=== PATIENT | male | born 1945 | race Caucasian/White ===

== ENCOUNTER → 2016-02-10 | Outpatient (CLI) | payer OTHER ==
[~2016-02-10] MED LIST: ASPI81TA28 PO; ATOR-24 PO; CARV6.252 PO; CRANBERRY FRUIT PO; OMEP40CA PO; [UNRECOGNIZED DRUG - OTHER] PO
== END | disposition home or self-care (01) ==
LOC: C.LABPVFM 13:16
PROVIDERS: ATTEND Nurse Practitioner Adult Health
DX: R35.0 Frequency of micturition (principal)

== ENCOUNTER → 2016-02-11 | Outpatient (CLI) | payer OTHER ==
[2016-02-11 17:40] LABS: HEMATOCRIT 41.4 % (42-52); MEAN CELL VOLUME 96.5 fL (80-100); MEAN CORPUSCULAR HGB CONC 35.3 g/dl (32-36); MEAN PLATELET VOLUME 10.4 fL (7.4-10.4); PLATELET COUNT 188 K/uL (130-400); RED BLOOD COUNT 4.29 M/uL (4.7-6.1); WHITE BLOOD COUNT 5.41 K/uL (4.8-10.8)
[2016-02-11 17:56] LABS: ALT/SGPT 37 U/L (12-78); AST/SGOT 28 U/L (15-37); BLOOD UREA NITROGEN 16 mg/dl (7-18); BUN/CREATININE RATIO 14.5 (10-20); CALCIUM 8.8 mg/dl (8.5-10.1); CARBON DIOXIDE 30 mmol/L (21-32); CHLORIDE 104 mmol/L (98-107); GLUCOSE 99 mg/dl (70-99); POTASSIUM 4.1 mmol/L (3.5-5.1); SODIUM 140 mmol/L (136-145)
[2016-02-11 17:59] LABS: ALB/GLOB RATIO 1.1 (0.9-2); ALKALINE PHOSPHATASE 96 U/L (45-117); CHOLESTEROL 184 mg/dl (0-200); CHOLESTEROL/HDL RATIO 3.8; HDL CHOLESTEROL 48 mg/dl; LDL CHOLESTEROL CALCULATED 72 mg/dl; TRIGLYCERIDES 321 mg/dl (0-150); VERY LOW DENSITY LIPOPROT CALC 64 mg/dl
== END | disposition home or self-care (01) ==
LOC: C.LABPVFM 10:19
PROVIDERS: ATTEND Nurse Practitioner Adult Health
DX: I10 Essential (primary) hypertension (principal); I42.9 Cardiomyopathy, unspecified; E78.5 Hyperlipidemia, unspecified; I25.10 Atherosclerotic heart disease of native coronary artery without angina pectoris; R31.9 Hematuria, unspecified

== ENCOUNTER → 2016-02-11 | Outpatient (CLI) | payer OTHER | END | disposition home or self-care (01) | LOC: C.PATHSPEC 07:50 | PROVIDERS: ATTEND Nurse Practitioner Adult Health | DX: R31.9 Hematuria, unspecified (principal) ==

== ENCOUNTER → 2016-07-27 | Outpatient (CLI) | payer OTHER ==
[2016-07-27 13:16] LABS: BLOOD UREA NITROGEN 18 mg/dl (7-18); BUN/CREATININE RATIO 14.7 (10-20); CARBON DIOXIDE 27 mmol/L (21-32); CHLORIDE 109 mmol/L (98-107); GLUCOSE 110 mg/dl (70-99); POTASSIUM 4.3 mmol/L (3.5-5.1); SODIUM 144 mmol/L (136-145)
[2016-07-27 13:19] LABS: CALCIUM 9.2 mg/dl (8.5-10.1)
== END | disposition home or self-care (01) ==
LOC: C.LABPVFM 10:18
PROVIDERS: ATTEND Physician Assistant
DX: E87.70 Fluid overload, unspecified (principal)

== ENCOUNTER → 2016-09-29 | Outpatient (CLI) | payer OTHER | END | disposition home or self-care (01) | LOC: C.PATHSPEC 10:55 | PROVIDERS: ATTEND Urology | DX: D49.4 Neoplasm of unspecified behavior of bladder (principal); R82.99 Other abnormal findings in urine ==

== ENCOUNTER → 2017-03-20 | Outpatient (CLI) | payer OTHER ==
[2017-03-20 12:14] LABS: HEMATOCRIT 42.6 % (42-52); HEMOGLOBIN 14.9 g/dL (14.0-18.0); MEAN CELL VOLUME 96.2 fL (80-100); MEAN CORPUSCULAR HEMOGLOBIN 33.6 pg (25-34); MEAN PLATELET VOLUME 10.7 fL (7.4-10.4); PLATELET COUNT 158 K/uL (130-400); RED CELL DISTRIBUTION WIDTH CV 12.8 % (11.5-14.5); RED CELL DISTRIBUTION WIDTH SD 44.5 fL (36.4-46.3); WHITE BLOOD COUNT 6.14 K/uL (4.8-10.8)
[2017-03-20 12:42] LABS: ALT/SGPT 30 U/L (12-78); AST/SGOT 22 U/L (15-37); BLOOD UREA NITROGEN 19 mg/dl (7-18); CALCIUM 9.3 mg/dl (8.5-10.1); CARBON DIOXIDE 28 mmol/L (21-32); CHOLESTEROL 138 mg/dl (0-200); CREATININE 1.06 mg/dl (0.60-1.40); GLUCOSE 101 mg/dl (70-99); POTASSIUM 4.3 mmol/L (3.5-5.1); SODIUM 139 mmol/L (136-145)
[2017-03-20 12:45] LABS: LDL CHOLESTEROL CALCULATED 62 mg/dl
== END | disposition home or self-care (01) ==
LOC: C.LABPVFM 09:37
PROVIDERS: ATTEND Internal Medicine Cardiovascular Disease
DX: D49.4 Neoplasm of unspecified behavior of bladder (principal); I10 Essential (primary) hypertension; E78.5 Hyperlipidemia, unspecified; I25.10 Atherosclerotic heart disease of native coronary artery without angina pectoris; R06.09 Other forms of dyspnea

== ENCOUNTER → 2017-03-27 | Outpatient (CLI) | payer OTHER ==
--- NOTE | 2017-03-27 11:23 | DIAGNOSTIC IMAGING REPORT ---
ABDOMINAL AORTIC ULTRASOUND CLINICAL HISTORY: Abdominal aortic aneurysm. COMPARISON STUDY: Abdominal aortic ultrasound October 13, [address] of the abdomen and pelvis August 26, 2014. FINDINGS: The proximal abdominal aorta measures 2.4 cm. The mid abdominal aorta measures 2.9 cm. The distal abdominal aorta measures 3.2 cm which is similar to prior exam. The caliber of the proximal bilateral common iliac arteries is normal. IMPRESSION: No significant change in a 3.2 cm infrarenal abdominal aortic aneurysm. Electronically signed by: Jose Kothari M.D. 03/27/2017 11:21 AM Dictated Date/Time: 03/27/2017 11:20 AM
== END | disposition home or self-care (01) ==
LOC: C.ULTR 10:47
PROVIDERS: ATTEND Internal Medicine Cardiovascular Disease
DX: I71.4 Abdominal aortic aneurysm, without rupture (principal)

== ENCOUNTER 2018-09-17 11:42 | Inpatient (IN) ==
[2018-09-17] MEDS ORDERED: SODIUM CHLORIDE 0.9% 500 ML IV SCH (12:00)
[2018-09-17 12:18] LABS: iSTAT Creatinine 1.2 mg/dl (0.6-1.3); iSTAT Hemoglobin 13.6 g/dl (14.0-18.0); iSTAT Ionized Calcium 1.22 mmol/l (1.12-1.32); iSTAT Potassium 3.8 mEq/L (3.3-5.0)
[2018-09-17 12:20] LABS: Basophils # (auto) 0.02 K/uL (0-0.2); Basophils % (auto) 0.4 %; Eosinophils # (auto) 0.11 K/uL (0-0.5); Eosinophils % (auto) 2.2 %; Hematocrit (blood only) 39.5 % (42-52); Hemoglobin 13.8 g/dL (14.0-18.0); Immature Granulocytes # (auto) 0.01 K/uL (0.00-0.02); Immature Granulocytes % (auto) 0.2 %; Lymphocytes # (auto) 0.78 K/uL (1.2-3.4); Lymphocytes % (auto) 15.3 %; Mean Corpuscular Hgb Conc 34.9 g/dL (32-36); Mean Platelet Volume 11.4 fL (7.4-10.4); Monocytes # (auto) 0.66 K/uL (0.11-0.59); Monocytes % (auto) 12.9 %; Neutrophils # (auto) 3.53 K/uL (1.4-6.5); Platelet Count 132 K/uL (130-400); RDW Coefficient of Variation 13.2 % (11.5-14.5); Red Blood Count 4.16 M/uL (4.7-6.1); White Blood Count 5.11 K/uL (4.8-10.8)
--- NOTE | 2018-09-17 12:23 | XRay Report ---
XR chest 1V portable CLINICAL HISTORY: weakness dyspnea COMPARISON STUDY: 01/29/2018 FINDINGS: Mild stable cardiomegaly. Diaphragms are smooth. Lungs are considered clear. No focal infil trate. IMPRESSION: Mild stable cardiomegaly. Otherwise negative study. The above report was generated using voice recognition software. It may contain grammatical, syntax or spelling errors. Electronically signed by: Roberto Carlos Linn M.D. 09/17/2018 12:22 PM
[2018-09-17 12:32] LABS: Prothrombin Time 10.5 Seconds (9.0-12.0)
[2018-09-17 12:38] LABS: Albumin Level 3.4 gm/dl (3.4-5.0); BUN Creatinine Ratio 14.7 (10-20); Calcium 8.9 mg/dl (8.5-10.1); Creatinine Clr Calc Pharmacy 82.5 ml/min; Est GFR (African American) 68.9; Est GFR (Non-African American) 59.5; Magnesium 2.3 mg/dl (1.8-2.4); Potassium 3.8 mmol/L (3.5-5.1)
[2018-09-17 12:49] LABS: Bilirubin,Total 0.7 mg/dl (0.2-1); Globulin 3.4 gm/dl (2.5-4.0); Total Protein 6.8 gm/dl (6.4-8.2); Troponin I 0.022 ng/ml (0-0.045)
[2018-09-17 13:25] LABS: Lyme Ab IgG w/WB Rflx Negative (Negative); Lyme Ab IgM w/WB Rflx Negative (Negative)
--- NOTE | 2018-09-17 13:35 | Emergency Department Note ---
Entered by Mariana Coronel acting as a scribe for Reggie Dhaliwal DO History of Present Illness General Chief complaint: Bradycardia Stated complaint: CARDIAC ASSESSMENT Source: patient History of Present Illness Provider complaint: Bradycardia Onset (ago): day(s) 3 Location: head and chest Pain Consistency: + intermittent (chest pain) Maximum Pain Intensity: 2 Quality: + constant Associated symptoms: + other (Positive: intermittent chest pain, low blood pressure, bradycardia, lightheaded, heart burn) The patient is a 73 year old male who presents to the ED for abnormal lab results assessment. The patient reports he was referred by his PCP. He notes his blood pressure was low. The patient states he has been having intermittent chest pain along with lightheadedness and heart burn for three days. He reports currently does not have any pain. The patient denies tobacco or alcohol use. Home Medications Home Medications Medication Instructions Recorded Confirmed Type alfuzosin [Uroxatral] 10 mg PO HS 04/15/18 09/17/18 History aspirin [Aspirin Low Dose] 81 mg PO DAILY 04/15/18 09/17/18 History atorvastatin [Lipitor] 80 mg PO HS 04/15/18 09/17/18 History carvedilol [Coreg] 25 mg PO BID 04/15/18 09/17/18 History furosemide [Lasix] 20 mg PO QPM 04/15/18 09/17/18 History cephalexin 500 mg capsule 500 mg PO QID #40 cap 09/05/18 09/17/18 Rx omeprazole 40 mg capsule,delayed 40 mg PO DAILY 09/17/18 09/17/18 History release Allergies Allergy/AdvReac Type Severity Reaction Status Date / Time isosorbide AdvReac Severe Headache, Verified 09/17/18 12:39 BLINDNESS losartan AdvReac Unknown HEADACHE, Verified 09/17/18 12:39 BLINDNESS Past Med/Surg History Medical History AAA (abdominal aortic aneurysm) Nonischemic cardiomyopathy Laryngeal cancer (Resolved) Diverticulosis (Chronic) Irritable bowel syndrome (Chronic) Hyperlipidemia (Chronic) Gout (Chronic) Coronary artery disease (Chronic) Bladder cancer (Chronic) Hypertension (Chronic) Hemochromatosis (Chronic) Family History Other FHx: cancer FHx: hypertension Social History Preferred Language: Amharic Communication Ability: Effective [employer] Required: No Beliefs That Will Affect Care: None Current Living Situation: Spouse Other Information That Helps Us Care for You: No Feels Safe at Home: Yes Safety Concerns: Feels Safe At This Time Smoking Status: Former smoker Do You Dip or Chew Tobacco: No ; Second Hand Exposure: No ; Tobacco Cessation Education Requested by Patient: No Hx Alcohol Use: Yes Alcohol type: beer Hx Substance Use: No Review of Systems See HPI for pertinent positives & negatives. and A total of 10 systems reviewed and were otherwise negative Physical Exam Vital Signs Vital Signs - 24 hr 09/17/18 11:50 09/17/18 12:03 09/17/18 12:10 Temperature 36.2 C L Temperature Source Oral Sepsis Recent Fever Within 48 Hours No Sepsis New/Unexplained Change in Mental Status No Sepsis Action Taken by Nursing No Action Required Pulse Rate 38 L 39 L 29 L Pulse Rate [Finger] Pulse Rate from SpO2 Sensor 30 L 33 L Pulse Rhythm Regular Pulse Strength Normal Respiratory Rate 20 14 19 Respiratory Effort / Characteristics Non-Labored Respiratory Depth Normal Respiratory Pattern Regular Blood Pressure 168/38 H Blood Pressure [Left Arm] Blood Pressure Mean 81 Blood Pressure Mean [Left Arm] Blood Pressure Position Sitting Pulse Oximetry 97 98 98 Oxygen Delivery Method Room Air Room Air Room Air 09/17/18 12:16 09/17/18 12:18 09/17/18 12:20 Temperature Temperature Source Sepsis Recent Fever Within 48 Hours Sepsis New/Unexplained Change in Mental Status Sepsis Action Taken by Nursing Pulse Rate Pulse Rate [Finger] Pulse Rate from SpO2 Sensor 39 L 34 L Pulse Rhythm Pulse Strength Respiratory Rate 22 22 Respiratory Effort / Characteristics Respiratory Depth Respiratory Pattern Blood Pressure 173/81 H Blood Pressure [Left Arm] Blood Pressure Mean 111 Blood Pressure Mean [Left Arm] Blood Pressure Position Pulse Oximetry 100 Oxygen Delivery Method Room Air Room Air Room Air 09/17/18 12:30 09/17/18 12:31 09/17/18 12:40 Temperature Temperature Source Sepsis Recent Fever Within 48 Hours Sepsis New/Unexplained Change in Mental Status Sepsis Action Taken by Nursing Pulse Rate 33 L Pulse Rate [Finger] Pulse Rate from SpO2 Sensor 33 L 33 L 33 L Pulse Rhythm Pulse Strength Respiratory Rate 20 18 Respiratory Effort / Characteristics Respiratory Depth Respiratory Pattern Blood Pressure 162/76 H Blood Pressure [Left Arm] Blood Pressure Mean 104 Blood Pressure Mean [Left Arm] Blood Pressure Position Pulse Oximetry Oxygen Delivery Method Room Air Room Air Room Air 09/17/18 12:45 09/17/18 12:50 09/17/18 12:52 Temperature Temperature Source Sepsis Recent Fever Within 48 Hours Sepsis New/Unexplained Change in Mental Status Sepsis Action Taken by Nursing Pulse Rate 34 L 31 L Pulse Rate [Finger] 34 L Pulse Rate from SpO2 Sensor 32 L 33 L Pulse Rhythm Pulse Strength Respiratory Rate 21 18 20 Respiratory Effort / Characteristics Respiratory Depth Respiratory Pattern Blood Pressure 171/76 H Blood Pressure [Left Arm] 171/76 H Blood Pressure Mean 107 Blood Pressure Mean [Left Arm] 107 Blood Pressure Position Pulse Oximetry 100 100 Oxygen Delivery Method Room Air Room Air Room Air 09/17/18 13:00 09/17/18 13:01 09/17/18 13:10 Temperature Temperature Source Sepsis Recent Fever Within 48 Hours Sepsis New/Unexplained Change in Mental Status Sepsis Action Taken by Nursing Pulse Rate 33 L 36 L 29 L Pulse Rate [Finger] Pulse Rate from SpO2 Sensor 32 L 31 L 31 L Pulse Rhythm Pulse Strength Respiratory Rate 17 18 15 Respiratory Effort / Characteristics Respiratory Depth Respiratory Pattern Blood Pressure 164/71 H Blood Pressure [Left Arm] Blood Pressure Mean 102 Blood Pressure Mean [Left Arm] Blood Pressure Position Pulse Oximetry 94 93 91 Oxygen Delivery Method Room Air Room Air Room Air 09/17/18 13:15 09/17/18 13:20 09/17/18 13:30 Temperature Temperature Source Sepsis Recent Fever Within 48 Hours Sepsis New/Unexplained Change in Mental Status Sepsis Action Taken by Nursing Pulse Rate 31 L 31 L 32 L Pulse Rate [Finger] Pulse Rate from SpO2 Sensor 31 L 31 L 32 L Pulse Rhythm Pulse Strength Respiratory Rate 18 20 21 Respiratory Effort / Characteristics Respiratory Depth Respiratory Pattern Blood Pressure 172/80 H Blood Pressure [Left Arm] Blood Pressure Mean 110 Blood Pressure Mean [Left Arm] Blood Pressure Position Pulse Oximetry 93 95 95 Oxygen Delivery Method Room Air Room Air Room Air 09/17/18 13:31 09/17/18 13:40 09/17/18 13:46 Temperature Temperature Source Sepsis Recent Fever Within 48 Hours Sepsis New/Unexplained Change in Mental Status Sepsis Action Taken by Nursing Pulse Rate 32 L 32 L 36 L Pulse Rate [Finger] Pulse Rate from SpO2 Sensor 32 L 32 L Pulse Rhythm Pulse Strength Respiratory Rate 20 19 20 Respiratory Effort / Characteristics Respiratory Depth Respiratory Pattern Blood Pressure 189/77 H 182/76 H Blood Pressure [Left Arm] Blood Pressure Mean 114 111 Blood Pressure Mean [Left Arm] Blood Pressure Position Pulse Oximetry 95 97 Oxygen Delivery Method Room Air Room Air Room Air 09/17/18 13:49 09/17/18 13:50 Temperature Temperature Source Sepsis Recent Fever Within 48 Hours Sepsis New/Unexplained Change in Mental Status Sepsis Action Taken by Nursing Pulse Rate 31 L Pulse Rate [Finger] 32 L Pulse Rate from SpO2 Sensor 31 L Pulse Rhythm Pulse Strength Respiratory Rate 15 19 Respiratory Effort / Characteristics Respiratory Depth Respiratory Pattern Blood Pressure Blood Pressure [Left Arm] 182/76 H Blood Pressure Mean Blood Pressure Mean [Left Arm] 111 Blood Pressure Position Pulse Oximetry 98 98 Oxygen Delivery Method Room Air Room Air GENERAL: Patient is awake alert in no acute distress patient is resting comfortably and showing no signs of anxiety EYES: The conjunctivae are clear. The pupils are round and reactive. EARS, NOSE, MOUTH AND THROAT: The nose is without any evidence of any deformity. Mucous membranes are moist tongue is midline NECK: The neck is nontender and supple. RESPIRATORY: Normal respiratory effort is noted there is no evidence of wheezing rhonchi or rales CARDIOVASCULAR: Irregular and bradycardic rate and rhythm were noted to auscultation. No definite murmur was noted. GASTROINTESTINAL: The abdomen is soft. Bowel sounds are present in all quadrants. Abdomen is nontender MUSCULOSKELETAL/EXTREMITIES: There is no evidence of gross deformity full range of motion is noted in the hips and shoulders SKIN: There is no obvious evidence of any rash. Trace pedal edema was noted bilaterally. NEUROLOGIC: Patient is awake alert and oriented x3. Course 1156: The patient was evaluated in room C11B. A complete history and physical exam was performed. 1327: I discussed the patient's case with Dr. Mcgee [facility] Hospitalist. 1329: Upon reevaluation, the patient is resting comfortably. I discussed laborat ory and radiographic results with him. The patient verbalized agreement of the treatment plan. The patient will be evaluated for further management and care. 1330: I discussed the patients case with Dr. Stallings [facility] Hospitalist. She will evaluate the patient for further management. Consultations Consultation #1: I discussed the patient's case with Dr. Mcgee [facility] Hospitalist. Time: 13:27 Consultation #2: I discussed the patients case with Dr. Stallings [facility] Hospitalist. She will evaluate the patient for further management. Time: 13:30 Administered Medications Alfuzosin HCl (Uroxatral) 10 mg PO HS [facility] Stop: 10/17/18 20:59 Last Admin: 09/17/18 21:11 Dose: 10 mg Documented by: [id number] Atorvastatin Calcium (Lipitor) 80 mg PO HS [facility] Stop: 10/17/18 20:59 Last Admin: 09/17/18 21:11 Dose: 80 mg Documented by: [id number] Hydralazine HCl (Hydralazine Hcl) 10 mg IV Q1H PRN PRN Reason: htn Stop: 10/17/18 17:14 Last Admin: 09/17/18 18:31 Dose: 10 mg Documented by: [id number] Discontinued Medications Atropine Sulfate (Atropine Sulfate) 0.5 mg IV NOW STA Stop: 09/18/18 03:00 Last Admin: 09/18/18 03:03 Dose: 0.5 mg Documented by: [id number] Hydralazine HCl (Hydralazine Hcl) 10 mg IV NOW STA Stop: 09/17/18 17:16 Last Admin: 09/17/18 17:20 Dose: 10 mg Documented by: [id number] Hydralazine HCl (Hydralazine Hcl) 10 mg IV NOW STA Stop: 09/17/18 18:13 Last Admin: 09/17/18 18:42 Dose: Not Given Documented by: [id number] Sodium Chloride (Nss) 500 mls @ 999 mls/hr IV .Q31M [facility] Stop: 09/17/18 12:30 Last Infusion: 09/17/18 12:52 Dose: 0 mls/hr Documented by: [id number] Admin: 09/17/18 12:20 Dose: 999 mls/hr Documented by: [id number] Medical Decision Making Differential Diagnosis Differential diagnosis: Etiologies such as premature contractions, electrolyte abnormality, cardiac dysrhythmia, thyroid dysfunction, pulmonary embolism, infection, gastrointestinal, as well as others were entertained. Medical Records Attestation: I reviewed the patient's medical records. Home Medications Current Medication List: was personally reviewed by me Laboratory Data Attestation: I reviewed the patient's lab results. Result diagrams: 09/18/18 04:19 09/18/18 04:19 Lab Results 09/17/18 09/17/18 09/17/18 Range/Units 12:04 12:04 12:04 WBC 5.11 (4.8-10.8) K/uL RBC 4.16 L (4.7-6.1) M/uL Hgb 13.8 L (14.0-18.0) g/dL POC Hgb (14.0-18.0) g/dl Hct 39.5 L (42-52) % POC Hct (42-52) % MCV 95.0 (80-100) fL MCH 33.2 (25-34) pg MCHC 34.9 (32-36) g/dL RDW Std Deviation 46.0 (36.4-46.3) fL RDW Coeff of Dewey 13.2 (11.5-14.5) % Plt Count 132 (130-400) K/uL MPV 11.4 H (7.4-10.4) fL Immature Gran % (Auto) 0.2 % Neut % (Auto) 69.0 % Lymph % (Auto) 15.3 % Menard % (Auto) 12.9 % Eos % (Auto) 2.2 % Baso % (Auto) 0.4 % Immature Gran # (Auto) 0.01 (0.00-0.02) K/uL Neut # (Auto) 3.53 (1.4-6.5) K/uL Lymph # (Auto) 0.78 L (1.2-3.4) K/uL Menard # (Auto) 0.66 H (0.11-0.59) K/uL Eos # (Auto) 0.11 (0-0.5) K/uL Baso # (Auto) 0.02 (0-0.2) K/uL PT 10.5 (9.0-12.0) Seconds INR 1.0 (0.9-1.1) POC Sodium (135-144) mEq/L Sodium (136-145) mmol/L POC Potassium (3.3-5.0) mEq/L Potassium (3.5-5.1) mmol/L POC Chloride (101-112) mEq/L Chloride (98-107) mmol/L Carbon Dioxide (21-32) mmol/L POC Total CO2 (24-31) mEq/l Anion Gap (3-11) POC Anion Gap (16-25) mmol/L POC BUN (7-18) mg/dl BUN (7-18) mg/dl Creatinine (0.6-1.4) mg/dl POC Creatinine (0.6-1.3) mg/dl Est Cr Clr Drug Dosing ml/min Est GFR ( Amer) Est GFR (Non-Af Amer) BUN/Creatinine Ratio (10-20) Glucose (70-99) mg/dl POC Glucose (other) (70-99) mg/dl Calcium (8.5-10.1) mg/dl POC Ioniz Calcium Kyler (1.12-1.32) mmol/l Magnesium (1.8-2.4) mg/dl Total Bilirubin (0.2-1) mg/dl AST (15-37) U/L ALT (12-78) U/L Alkaline Phosphatase (45-117) U/L Troponin I (0-0.045) ng/ml Total Protein (6.4-8.2) gm/dl Albumin (3.4-5.0) gm/dl Globulin (2.5-4.0) gm/dl Albumin/Globulin Ratio (0.9-2) TSH Cancelled Lyme Disease IgG Ab (Negative) Lyme Disease IgM Ab (Negative) 09/17/18 09/17/18 09/17/18 Range/Units 12:04 12:04 12:06 WBC (4.8-10.8) K/uL RBC (4.7-6.1) M/uL Hgb (14.0-18.0) g/dL POC Hgb 13.6 L (14.0-18.0) g/dl Hct (42-52) % POC Hct 40 L (42-52) % MCV (80-100) fL MCH (25-34) pg MCHC (32-36) g/dL RDW Std Deviation (36.4-46.3) fL RDW Coeff of Dewey (11.5-14.5) % Plt Count (130-400) K/uL MPV (7.4-10.4) fL Immature Gran % (Auto) % Neut % (Auto) % Lymph % (Auto) % Menard % (Auto) % Eos % (Auto) % Baso % (Auto) % Immature Gran # (Auto) (0.00-0.02) K/uL Neut # (Auto) (1.4-6.5) K/uL Lymph # (Auto) (1.2-3.4) K/uL Menard # (Auto) (0.11-0.59) K/uL Eos # (Auto) (0-0.5) K/uL Baso # (Auto) (0-0.2) K/uL PT (9.0-12.0) Seconds INR (0.9-1.1) POC Sodium 140 (135-144) mEq/L Sodium 142 (136-145) mmol/L POC Potassium 3.8 (3.3-5.0) mEq/L Potassium 3.8 (3.5-5.1) mmol/L POC Chloride 104 (101-112) mEq/L Chloride 107 (98-107) mmol/L Carbon Dioxide 27 (21-32) mmol/L POC Total CO2 24 (24-31) mEq/l Anion Gap 7.0 (3-11) POC Anion Gap 17.0 (16-25) mmol/L POC BUN 18 (7-18) mg/dl BUN 18 (7-18) mg/dl Creatinine 1.21 (0.6-1.4) mg/dl POC Creatinine 1.2 (0.6-1.3) mg/dl Est Cr Clr Drug Dosing 82.5 ml/min Est GFR ( Amer) 68.9 Est GFR (Non-Af Amer) 59.5 BUN/Creatinine Ratio 14.7 (10-20) Glucose 114 H (70-99) mg/dl POC Glucose (other) 116 H (70-99) mg/dl Calcium 8.9 (8.5-10.1) mg/dl POC Ioniz Calcium Kyler 1.22 (1.12-1.32) mmol/l Magnesium 2.3 (1.8-2.4) mg/dl Total Bilirubin 0.7 (0.2-1) mg/dl AST 37 (15-37) U/L ALT 77 (12-78) U/L Alkaline Phosphatase 106 (45-117) U/L Troponin I 0.022 (0-0.045) ng/ml Total Protein 6.8 (6.4-8.2) gm/dl Albumin 3.4 (3.4-5.0) gm/dl Globulin 3.4 (2.5-4.0) gm/dl Albumin/Globulin Ratio 1.0 (0.9-2) TSH 1.970 Lyme Disease IgG Ab Negative (Negative) Lyme Disease IgM Ab Negative (Negative) Imaging Data Radiologist's Impression: Radiology results as stated below per my review and the radiologist's interpretation: XR chest 1V portable CLINICAL HISTORY: weakness dyspnea COMPARISON STUDY: 01/29/2018 FINDINGS: Mild stable cardiomegaly. Diaphragms are smooth. Lungs are considered clear. No focal infiltrate. IMPRESSION: Mild stable cardiomegaly. Otherwise negative study. The above report was generated using voice recognition software. It may contain grammatical, syntax or spelling errors. Electronically signed by: Roberto Carlos Linn M.D. 09/17/2018 12:22 PM ECG Data Attestation: I personally reviewed and interpreted this ECG as follows: Indication: chest pain Rate (beats per minute): 31 Findings: + other (3rd degree heart block) and + T-wave inversion (Diffused); no PVC Comparison ECG Date: from (03/23/14) Change: the following changes noted (Changes are new) Blood Pressure Blood Pressure Findings: Elevated blood pressure Blood Pressure Disposition: further management by hospitalist MDM Narrative The patient is a 73-year-old male who presented to the emergency department for an evaluation of dizziness upon standing and exertional chest pain. The patient has been having symptoms for the last few days. He went to his primary biology internship office and was noted to be in heart block. He was sent to the emergency department for further evaluation. At rest the patient's blood pressure is stable. He appears only if symptoms upon standing and exertion. I discussed the patient's laboratory and radiographic studies with him. No definite underlying cause was found for his heart block but he does take cardiac medications. The patient does not admit to taking his medications inappropriately. The patient was treated with a small fluid bolus. I discussed his case with the [facility] biology internship as well as the on-call [facility] hospitalist group. They have agreed to evaluate the patient in the emergency department for further management disposition. Likely the patient will require pacemaker placement if if symptoms do not improve with observation. I discussed this with the patient and he is agreeable to this plan at this time. The patient was placed on the transcutaneous pacemaker but would not require this intervention while he was in the emergency department. Impression & Plan Third degree heart block, Dizziness, Exertional chest pain Discharge Plan Visit Data *Final* Discharge Date/Time: 09/17/18 15:16 Chief Complaint: Bradycardia Stated Complaint: CARDIAC ASSESSMENT ED Provider: Reggie Dhaliwal Discharge Problem: Third degree heart block, Dizziness, Exertional chest pain Patient Disposition: Admitted As Inpatient Discharge Instructions Interventions: ED Discharge Assessment Last Done: 09/17/18 15:16 The scribe's documentation has been prepared under my direction and personally reviewed by me in its entirety. I confirm that the note above accurately reflects all work, treatment, procedures, and medical decision making performed by me.
--- NOTE | 2018-09-17 13:51 | History & Physical Report ---
Date of Service September 17, 2018 Assessment & Plan (1) Third degree heart block: -Admit to PCU -EKG reviewed, reveals third-degree heart block with heart rate in the 20s to 30s while at bedside during my exam -Cardiology consult, discussed with Dr. Aguero over the phone -N.p.o. after midnight for likely pacemaker placement in the morning -Patient denies lightheadedness, dizziness, shortness of breath or chest pain while lying flat at bedside. -Maintain AED pads on the patient at all times, keep IV atropine at bedside, patient placed on bedrest -Holding carvedilol, last dose was this morning -patient has not been taking furosemide routinely so will hold this as well -continue aspirin and atorvastatin -2D echo ordered -Trend troponins (2) Dizziness: -Secondary to third-degree heart block as above (3) Nonischemic cardiomyopathy: -As above, mild, follows with Dr. Mcgee and Deanna Burger as an outpatient (4) Coronary artery disease: - hold BB, cont ASA 81 mg (5) Hypertension: -BP elevated at 182/76, will allow permissive hypertension at this time -Holding carvedilol and furosemide -Can consider IV hydralazine if SBP greater than 200, diastolic greater than 110, avoid any beta-blockers (6) AAA (abdominal aortic aneurysm): - Mar 2017, measured 3.2 infrarenal AAA at that time (7) Hyperlipidemia: -Continue atorvastatin (8) Laryngeal cancer: -Originally diagnosed in 2011, status post XRT, chemotherapy, in remission -Hold Keflex, patient had been taking this since 09/11/18 for sore throat per Dr. CONNER, ENT, reports sore throat is much improved. Patient reports Dr. Alvarenga used scope to visualize this during that visit, said did not appear concerning for cancer, although it appeared red, continue PPI. (9) Hemochromatosis: -Chronic (10) Obesity: -BMI of 35.9, diet and exercise to be encouraged upon discharge -Appears to be mostly abdominal obesity, (11) DVT prophylaxis: -Teds, no chemical prophylaxis in the setting of possible pacemaker placement tomorrow Disposition: Patient from home, lives with (Janet) who is handicapped. I attempted to call her at [phone] at 2:55 pm, but she was unreachable. I will try again later today to discuss the plan of care with her. 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 The pt notes he began feeling lightheaded and dizzy last Monday. Patient reports he was pulling weeds outside and blacked out, fell to the ground and hit his left elbow, denies injury to any other part of the body denies head trauma and reports that he came to very quickly. This event was unwitnessed. Once awake again he proceeded to take it easy the rest of the evening. Patient reports he then again felt onset of lightheadedness when he went from sitting to standing position, all day yesterday. Patient may need outpatient appointment with cardiology, as he follows with Dr. Aguero routinely. Patient was referred from the cardiology office to the ER with third-degree heart block. EKG completed revealing this. He did take all of his morning medications including carvedilol 25 mg. He has not been taking furosemide routinely, last dose was about 1 week ago. He also notes that he was recently started on Keflex 500 4 times daily last Monday for a sore throat by Dr. Alvarenga, ENT, with his history of laryngeal cancer. Allergies Allergy/AdvReac Type Severity Reaction Status Date / Time isosorbide AdvReac Severe Headache, Verified 09/17/18 12:39 BLINDNESS losartan AdvReac Unknown HEADACHE, Verified 09/17/18 12:39 BLINDNESS Home Medications Home Medications Medication Instructions Recorded Confirmed Type alfuzosin [Uroxatral] 10 mg PO HS 04/15/18 09/17/18 History aspirin [Aspirin Low Dose] 81 mg PO DAILY 04/15/18 09/17/18 History atorvastatin [Lipitor] 80 mg PO HS 04/15/18 09/17/18 History carvedilol [Coreg] 25 mg PO BID 04/15/18 09/17/18 History furosemide [Lasix] 20 mg PO QPM 04/15/18 09/17/18 History cephalexin 500 mg capsule 500 mg PO QID #40 cap 09/05/18 09/17/18 Rx omeprazole 40 mg capsule,delayed 40 mg PO DAILY 09/17/18 09/17/18 History release Past Med/Surg History Medical History Laryngeal cancer (Resolved) Diverticulosis (Chronic) Irritable bowel syndrome (Chronic) Hyperlipidemia (Chronic) Gout (Chronic) Coronary artery disease (Chronic) Bladder cancer (Chronic) Hypertension (Chronic) Hemochromatosis (Chronic) Family History Other FHx: cancer FHx: hypertension Social History Preferred Language: Spanish Feels Safe at Home: Yes Smoking Status: Former smoker Review of Systems Review of Systems: Constitutional: No fever, sweats or chills Eyes: No diplopia, no worsening or blurred vision ENT: normal hearing, no trouble swallowing Respiratory: No cough, sputum, dyspnea at rest or on exertion, no respiratory complaints while in the ER Cardiovascular: + Lightheadedness, dizziness worse when going from a sit to stand position, no chest pain, tightness or palpitations Abdomen: No pain, nausea, vomiting, diarrhea or constipation Musculoskeletal: No joint pain, calf pain, swelling Neurologic: No weakness, + numbness/tingling in feet bilaterally chronic, no balance problems Psychiatric: No anxiety or depression Skin: No rash or itch Physical Exam Physical Exam: General: awake, alert, no apparent distress, lying flat, obese Head: Normocephalic, atraumatic ENT: PERRL, EOMI, no pharyngeal exudate, mucous membranes moist Chest: Clear to auscultation, on room air, no adventitious breath sounds Cardiac: + Bradycardic with heart rate equal 20s while at bedside, cannot appreciate murmur, no JVD, normal peripheral pulses Abdominal: + Protuberant abdomen, NABS x 4 quadrants, soft, nontender to palpation, no rebound, guarding or tenderness Extremities: Normal inspection, no peripheral edema or erythema, calfs nontender to palpation Psych: Normal mood and affect Neuro: AAO x 3, no motor deficits, speech is clear, no peripheral sensory deficits Skin: no rash or erythema Results & Data Vital Signs (Past 12 Hours) Vital Signs Temp Pulse Pulse Resp BP BP Pulse Ox 09/17/18 13:49 32 L 15 182/76 H 98 09/17/18 13:46 36 L 20 182/76 H 97 09/17/18 13:40 32 L 19 09/17/18 13:31 32 L 20 189/77 H 95 09/17/18 13:30 32 L 21 95 09/17/18 13:20 31 L 20 95 09/17/18 13:15 31 L 18 172/80 H 93 09/17/18 13:10 29 L 15 91 09/17/18 13:01 36 L 18 164/71 H 93 09/17/18 13:00 33 L 17 94 09/17/18 12:52 34 L 20 171/76 H 09/17/18 12:50 31 L 18 100 09/17/18 12:45 34 L 21 171/76 H 100 09/17/18 12:40 33 L 09/17/18 12:31 18 162/76 H 09/17/18 12:30 20 09/17/18 12:20 22 100 09/17/18 12:16 22 173/81 H 09/17/18 12:10 29 L 19 98 09/17/18 12:03 39 L 14 98 09/17/18 11:50 36.2 C L 38 L 20 168/38 H 97 Diagnostic Findings XR chest 1V portable CLINICAL HISTORY: weakness dyspnea COMPARISON STUDY: 01/29/2018 FINDINGS: Mild stable cardiomegaly. Diaphragms are smooth. Lungs are considered clear. No focal infiltrate. IMPRESSION: Mild stable cardiomegaly. Otherwise negative study. ECG Additional Comments: 17-SEP-2018 11:57:57 [facility]-EDSTAT ROUTINE RETRIEVAL Atrial fibrillation with slow ventricular response with a competing junctional pacemaker with premature ventricular or aberrantly conducted complexes ST & T wave abnormality, consider anterior ischemia Prolonged QT Abnormal ECG When compared with ECG of 23-MAR-2014 13:40, Atrial fibrillation has replaced Sinus rhythm Vent. rate has decreased BY 40 BPM Left bundle branch block is no longer Present 25mm/s 10mm/mV 150Hz 9.0.8 12SL 241 MORALES: 3 Unconfirmed Vent. rate 31 BPM LA interval * ms QRS duration 102 ms QT/QTc 660/474 ms P-R-T axes Code Status & VTE Plan Code Status Full code-discussed with the patient at bedside PG Care Time/CCT Total # of Minutes Spent Total Time Spent with Patient: Total time spent is greater than 50% in coordination of care (as documented) at patient's floor/unit and/or counseling patient:
[2018-09-17] MEDS ORDERED: ACETAMINOPHEN 325 MG TAB PO PRN (13:59)
[2018-09-17] MEDS ORDERED: ONDANSETRON INJ 2 MG/ML 2 ML VIAL IV PRN (13:59)
[2018-09-17] MEDS ORDERED: ATROPINE SULFATE 0.1 MG/ML 10ML SYR IV PRN (17:11)
[2018-09-17] MEDS ORDERED: HydrALAZINE HCL 20 MG/ML VIAL IV STA ×2 (17:15→18:12)
[2018-09-17 18:03] LABS: Appearance Urine Clear (Clear); Bilirubin Urine Negative (Negative); Blood Urine Negative (Negative); Color Urine Yellow; Glucose Urine UA Negative (Negative); Ketones Urine Negative (Negative); Leukocyte Esterase Urine Negative (Negative); Nitrite Urine Negative (Negative); Protein Urine Negative (Negative); Specific Gravity Urine 1.018 (1.000-1.030); Urobilinogen Urine Negative (Negative); pH Urine 6.5 (4.5-7.5)
[2018-09-17] MEDS: HydrALAZINE HCL 20 MG/ML VIAL IV PRN (18:31)
[2018-09-17] MEDS: ALFUZOSIN HCL 10 MG TAB PO SCH (21:11)
[2018-09-17] MEDS: ATORVASTATIN 40 MG TAB PO SCH (21:11)
[2018-09-18] MEDS ORDERED: ATROPINE SULFATE 0.1 MG/ML 10ML SYR IV STA (02:59)
--- NOTE | 2018-09-18 03:04 | Progress Note ---
Date of Service September 18, 2018 at ~ 3 am Received a page from the patient's bedside nurse stating that the patient was noted to have cardiac pauses on the monitor between 4 to 5 seconds. I received turnover information stating the patient was admitted with third- degree heart block and is currently has pacer pads in place. Plans for likely pacemaker placement in the morning. Spoke with patient and his nurse at bedside. Patient is presently awake, pleasantly conversational, and states that he has no current symptoms to include any chest pain / discomfort, shortness of breath, dizziness, or lightheadedness. Last blood pressure was 152/62 with heart rate around 25-27. Spoke with truck technician. She notes pauses between 4 to 5 seconds in duration. Discussed case with Dr. Burkett. We will treat with a single dose of atropine 0.5 mg IV x1. Monitoring ongoing. Chyna Hinojosa, PGY3 Overnight call Results & Data Vital Signs (Past 12 Hours) Vital Signs Temp Pulse Pulse Pulse Resp BP BP 09/18/18 02:56 27 L 15 152/62 H 09/17/18 23:37 36.9 C 29 L 17 180/72 H 09/17/18 22:20 30 L 09/17/18 19:43 36.7 C 32 L 19 171/70 H 09/17/18 18:30 31 L 186/84 H 09/17/18 18:22 25 L 09/17/18 17:36 28 L 18 200/90 H 180/76 H 09/17/18 17:13 25 L 18 195/82 H 172/82 H 09/17/18 16:49 36.4 C L 25 L 18 210/90 H 09/17/18 16:05 30 L 12 170/64 H 09/17/18 16:00 26 L 3 L 09/17/18 15:50 23 L 18 09/17/18 15:40 31 L 7 L 09/17/18 15:30 32 L 16 09/17/18 15:20 24 L 21 09/17/18 15:16 26 L 10 L 09/17/18 15:10 23 L 13 Pulse Ox 09/18/18 02:56 09/17/18 23:37 96 09/17/18 22:20 09/17/18 19:43 98 09/17/18 18:30 09/17/18 18:22 09/17/18 17:36 95 09/17/18 17:13 96 09/17/18 16:49 98 09/17/18 16:05 98 09/17/18 16:00 98 09/17/18 15:50 09/17/18 15:40 99 09/17/18 15:30 95 09/17/18 15:20 09/17/18 15:16 97 09/17/18 15:10 97
[2018-09-18 04:42] LABS: Hematocrit (blood only) 38.3 % (42-52); Hemoglobin 13.4 g/dL (14.0-18.0); Mean Corpuscular Volume 94.6 fL (80-100); Mean Platelet Volume 11.1 fL (7.4-10.4); Platelet Count 110 K/uL (130-400); RDW Coefficient of Variation 13.1 % (11.5-14.5); RDW Standard Deviation 45.4 fL (36.4-46.3); Red Blood Count 4.05 M/uL (4.7-6.1); White Blood Count 6.34 K/uL (4.8-10.8)
[2018-09-18 04:55] LABS: INR 1.1 (0.9-1.1); Prothrombin Time 10.9 Seconds (9.0-12.0)
[2018-09-18 05:07] LABS: BUN Creatinine Ratio 15.6 (10-20); Calcium 8.3 mg/dl (8.5-10.1); Creatinine Clr Calc Pharmacy 104.8 ml/min; Est GFR (African American) 92.3; Est GFR (Non-African American) 79.7; Potassium 3.8 mmol/L (3.5-5.1)
[2018-09-18 05:11] LABS: Bilirubin,Total 0.7 mg/dl (0.2-1); Globulin 2.9 gm/dl (2.5-4.0); Total Protein 5.9 gm/dl (6.4-8.2); Troponin I 0.038 ng/ml (0-0.045)
[2018-09-18] MEDS ORDERED: CEFAZOLIN 3000MG 72.5 ML IV SCH (06:00)
--- NOTE | 2018-09-18 08:34 | Cardiology Progress Note ---
Date of Service September 18, 2018 Assessment & Plan (1) Syncope: He had an episode of syncope prior to admission and after that noticed his heart rate to be slow. I suspect he went into heart block then and had syncope related to that. There is no evidence that he has a tachyarrhythmia although it was conceivable. I would not investigate further and the pacemaker will monitor for tachyarrhythmias. (2) Third degree heart block: He presents in complete heart block. He was on carvedilol which conceivably could contribute, although he should remain on it due to his prior cardiomyopathy, but with discontinuation and now 24 hours after his last dose he has had no improvement in conduction. He will need a pacemaker. He has normal left ventricular function so a biventricular device is not indicated, although he has the risk of developing a pacer induced cardiomyopathy. That does not always happen however therefore a standard device will be used. I discussed the indications, procedure, risks and alternatives of pacemaker implantation with him and he understands and agrees to proceed. Consent obtained. I also discussed conscious sedation with him and he agrees. Consent obtained. We talked to his on the telephone and did not want me to discuss it with her. She will not be here for the procedure. (3) Coronary artery disease: He has nonobstructive coronary artery disease she, however he has no indication at this was an ischemic event. Troponins were done and were negative x3. (4) Nonischemic cardiomyopathy: He had a nonischemic cardia myopathy which has recovered with medical therapy. Hopefully he will not have recurrence with ventricular pacing, we should continue his heart failure medications including carvedilol after the pac emaker. Subjective This is a very pleasant 73-year-old gentleman who has a history of nonischemic cardiomyopathy but recovery of his left ventricular function, nonobstructive coronary disease, hypertension and hyperlipidemia. He was seen in the office on September 17, 2018 with a low heart rate, he evidently had a syncopal event on September 14, 2018 after doing yard work and then checked his pulse and noted it to be low. He had no further syncope, he may have had intermittent lightheadedness. He was observed to be in complete heart block. He was therefore admitted. Overnight he has continued to have complete heart block. He was on carvedilol 25 mg twice a day which was discontinued after his morning dose on September 17, 2018, therefore he has been off of it for 24 hours. He has had no chest discomfort, he has had no further lightheadedness or dizziness but continues to have heart block. Physical Exam Physical Exam: Constitutional: Alert, cooperative and in no distress. HEENT: Unremarkable Neck: No jugular venous distention, carotid pulses are slow but equal bilaterally without bruits. Pulmonary: Clear to auscultation bilaterally. Cardiac: Regular very slow rhythm with no murmur, gallop or rub. Abdomen: Soft, nontender with normal bowel sounds. Extremities: +1 bilateral pretibial edema. Distal pulses intact. Neurologic: No focal findings. Gait was not tested. Skin: No rash, ecchymoses or petechiae. Results & Data Vital Signs (Past 12 Hours) Vital Signs Temp Pulse Pulse Pulse Resp BP Pulse Ox 09/18/18 04:41 36.8 C 28 L 17 98 09/18/18 02:56 27 L 15 152/62 H 09/17/18 23:37 36.9 C 29 L 17 180/72 H 96 09/17/18 22:20 30 L Laboratory Results Abnormal lab results 09/17/18 09/17/18 09/17/18 Range/Units 12:04 12:04 12:06 RBC 4.16 L (4.7-6.1) M/uL Hgb 13.8 L (14.0-18.0) g/dL POC Hgb 13.6 L (14.0-18.0) g/dl Hct 39.5 L (42-52) % POC Hct 40 L (42-52) % Plt Count (130-400) K/uL MPV 11.4 H (7.4-10.4) fL Lymph # (Auto) 0.78 L (1.2-3.4) K/uL [place] # (Auto) 0.66 H (0.11-0.59) K/uL Chloride (98-107) mmol/L Glucose 114 H (70-99) mg/dl POC Glucose (other) 116 H (70-99) mg/dl Calcium (8.5-10.1) mg/dl Total Protein (6.4-8.2) gm/dl Albumin (3.4-5.0) gm/dl 09/18/18 09/18/18 Range/Units 04:19 04:19 RBC 4.05 L (4.7-6.1) M/uL Hgb 13.4 L (14.0-18.0) g/dL POC Hgb (14.0-18.0) g/dl Hct 38.3 L (42-52) % POC Hct (42-52) % Plt Count 110 L (130-400) K/uL MPV 11.1 H (7.4-10.4) fL Lymph # (Auto) (1.2-3.4) K/uL [place] # (Auto) (0.11-0.59) K/uL Chloride 110 H (98-107) mmol/L Glucose 107 H (70-99) mg/dl POC Glucose (other) (70-99) mg/dl Calcium 8.3 L (8.5-10.1) mg/dl Total Protein 5.9 L (6.4-8.2) gm/dl Albumin 3.0 L (3.4-5.0) gm/dl Diagnostic Findings Electrocardiogram: This shows complete heart block with a ventricular rate of 31 bpm, he does have an escape rhythm which is probably junctional. Echocardiogram: Done yesterday after admission, left ventricular function is nearly normal. Telemetry: Continue complete heart block with pauses, some over 6 seconds in duration, no evidence of AV conduction. PG Care Time/CCT Total # of Minutes Spent Total Time Spent with Patient: Total time spent is greater than 50% in coordination of care (as documented) at patient's floor/unit and/or counseling patient:
[2018-09-18] MEDS ORDERED: LACTATED RINGER'S 1,000 ML IV SCH (09:45)
[2018-09-18] MEDS ORDERED: BACITRACIN INJ 50,000 UNIT VIAL ONE (12:20)
[2018-09-18] MEDS ORDERED: LIDOCAINE HCL 1% 20 ML VIAL ONE (12:20)
[2018-09-18] MEDS ORDERED: MIDAZOLAM HCL 5 MG/ML 1 ML VIAL ONE (13:39)
[2018-09-18] MEDS ORDERED: fentaNYL citrate 100 MCG/2 ML VIAL ONE (13:39)
--- NOTE | 2018-09-18 13:48 | Pre Anesthesia Assessment ---
Date of Service September 18, 2018 Pre Sedation Assessment Vital Signs Temp Pulse Pulse Pulse Resp BP BP 09/18/18 12:21 36.5 C 26 L 22 140/60 09/18/18 08:00 36.7 C 28 L 27 L 20 164/68 H 09/18/18 04:41 36.8 C 28 L 17 09/18/18 02:56 27 L 15 152/62 H 09/17/18 23:37 36.9 C 29 L 17 180/72 H 09/17/18 22:20 30 L 09/17/18 19:43 36.7 C 32 L 19 171/70 H 09/17/18 18:30 31 L 186/84 H 09/17/18 18:22 25 L 09/17/18 17:36 28 L 18 200/90 H 09/17/18 17:13 25 L 18 195/82 H 09/17/18 16:49 36.4 C L 25 L 18 210/90 H 09/17/18 16:05 30 L 12 170/64 H 09/17/18 16:00 26 L 3 L 09/17/18 15:50 23 L 18 09/17/18 15:40 31 L 7 L 09/17/18 15:30 32 L 16 09/17/18 15:20 24 L 21 09/17/18 15:16 26 L 10 L 09/17/18 15:10 23 L 13 09/17/18 15:00 29 L 14 09/17/18 14:50 26 L 10 L 09/17/18 14:40 33 L 10 L 09/17/18 14:30 41 L 21 09/17/18 14:20 40 L 18 09/17/18 14:10 47 L 28 H 09/17/18 14:01 39 L 26 H 181/81 H 09/17/18 14:00 34 L 21 09/17/18 13:50 31 L 19 09/17/18 13:49 32 L 15 182/76 H BP Pulse Ox 09/18/18 12:21 98 09/18/18 08:00 09/18/18 04:41 98 09/18/18 02:56 09/17/18 23:37 96 09/17/18 22:20 09/17/18 19:43 98 09/17/18 18:30 09/17/18 18:22 09/17/18 17:36 180/76 H 95 09/17/18 17:13 172/82 H 96 09/17/18 16:49 98 09/17/18 16:05 98 09/17/18 16:00 98 09/17/18 15:50 09/17/18 15:40 99 09/17/18 15:30 95 09/17/18 15:20 09/17/18 15:16 97 09/17/18 15:10 97 09/17/18 15:00 97 09/17/18 14:50 97 09/17/18 14:40 95 09/17/18 14:30 98 09/17/18 14:20 98 09/17/18 14:10 95 09/17/18 14:01 09/17/18 14:00 98 09/17/18 13:50 98 09/17/18 13:49 98 Cardiovascular + regular rhythm and + bradycardic Respiratory normal respiratory effort, lungs clear to auscultation Pre-Sedation Airway Assessment Smoking Status: Former smoker Hx Difficult Intubation: No Short, Thick Neck: No Thyromental Distance: > or= 3.5 Finger Breadths Mallampati Class: I ASA: ASA3 NPO Status Date of Last Intake of Fluids: 09/17/18 Date of Last Intake of Solid Food: 09/17/18 Procedure Planning Contraindications for Sedation: none Current Medications Reviewed: Yes Notes The planned sedation has been discussed with the patient. Informed Consent was obtained. I have identified the patient, determined the appropriateness of sedation and have assessed the patient immediately prior to the procedure. All medicine(s) and interventions are by my order.
[2018-09-18] MEDS: ASPIRIN 81 MG ECTAB PO SCH (14:10)
[2018-09-18] MEDS: PANTOprazole 40 MG TAB PO SCH (14:10)
[2018-09-18] MEDS ORDERED: BACITRACIN OINT 0.9 GM PKT ONE (15:00)
--- NOTE | 2018-09-18 15:10 | Operative Report ---
Post Operative Report Pre & Post Diagnosis Operation Date: 09/18/18 13:00 <No data on this case meets the specified criteria> Procedure Operation Date: 09/18/18 13:00 Actual Procedures p Pacer with A/V Leads (Dual) - Matthew May MD Surgeon Matthew May MD Orthodontic Assistant None Estimated Blood Loss 30 Findings Consistent with Post-Op Diagnosis Specimens Pain Anesthesia Type Local Complications none Disposition Disposition: PCU Description of Procedure After obtaining informed consent for the procedure, the patient was brought to the laboratory and prepped and draped in the standard sterile manner. The left prepectoral region was anesthetized with 1% lidocaine local anesthetic and left axillary venipuncture was performed by percutaneous technique and a guidewire placed through the left subclavian vein into the superior vena cava. The area was further infiltrated with 1% lidocaine local anesthetic and a 5 cm incision was made parallel to the left clavicle and 2 cm below it and carried down to the anterior pectoralis fascia. A pacemaker pocket was formed by blunt dissection anterior to the pectoralis fascia and a bacitracin-soaked sponge (50,000 units in 50 cc normal saline solution) was placed in the pocket. An 8 [place] Medtronic lead introducer was placed over the guidewire into the left subclavian vein, the dilator and guidewire were removed and a bipolar active fixation steroid tipped ventricular lead was advanced through the introducer into the superior vena cava. A guidewire was placed through the introducer and the introducer was stripped from the lead and guidewire. Another 8 [place] Medtronic lead introducer was placed over the guidewire into the left subclavian vein, the dilator and guidewire were removed and a bipolar active fixation steroid tipped atrial lead was advanced through the introducer into the superior vena cava. A guidewire was placed back through the introducer and the introducer was stripped from the lead and guidewire. Using a curved stylette the ventricular lead was advanced through the right ventricular outflow tract into the pulmonary artery and then using a straight stylette was positioned in the right ventricular apex. The screw was extended fixing the lead in position. Pacing and sensing thresholds were evaluated in bipolar configuration and are recorded on the implant data sheet. Using a curved stylette the atrial lead was positioned in the region of the atrial appendage and the screw extended fixing the lead in position. Pacing and sensing thresholds were evaluated in bipolar configuration and are recorded on the implant data sheet. Once the leads were in position they were attached to the anterior pectoralis fascia using 2 sutures of 2-0 silk around each lead collar. The bacitracin- soaked sponge was removed from the pocket, hemostasis was obtained, the pacemaker was attached to the leads and placed in the pocket with the leads coiled beneath it. The incision was closed with a running double subcutaneous closure of 3-0 Vicryl absorbable suture, followed by running subcuticular skin closure of 4-0 Vicryl absorbable suture. Bacitracin ointment was placed on the incision and a pressure dressing applied. I attest to the content of the Intraoperative Record and any orders documented therein. Any exceptions are noted below.
--- NOTE | 2018-09-18 15:16 | Post Anesthesia Assessment ---
Date of Service September 18, 2018 Post Sedation Assessment Vital Signs Temp Pulse Pulse Pulse Resp BP BP 09/18/18 12:21 36.5 C 26 L 22 140/60 09/18/18 08:00 36.7 C 28 L 27 L 20 164/68 H 09/18/18 04:41 36.8 C 28 L 17 09/18/18 02:56 27 L 15 152/62 H 09/17/18 23:37 36.9 C 29 L 17 180/72 H 09/17/18 22:20 30 L 09/17/18 19:43 36.7 C 32 L 19 171/70 H 09/17/18 18:30 31 L 186/84 H 09/17/18 18:22 25 L 09/17/18 17:36 28 L 18 200/90 H 180/76 H 09/17/18 17:13 25 L 18 195/82 H 172/82 H 09/17/18 16:49 36.4 C L 25 L 18 210/90 H 09/17/18 16:05 30 L 12 170/64 H 09/17/18 16:00 26 L 3 L 09/17/18 15:50 23 L 18 09/17/18 15:40 31 L 7 L 09/17/18 15:30 32 L 16 09/17/18 15:20 24 L 21 09/17/18 15:16 26 L 10 L Pulse Ox 09/18/18 12:21 98 09/18/18 08:00 09/18/18 04:41 98 09/18/18 02:56 09/17/18 23:37 96 09/17/18 22:20 09/17/18 19:43 98 09/17/18 18:30 09/17/18 18:22 09/17/18 17:36 95 09/17/18 17:13 96 09/17/18 16:49 98 09/17/18 16:05 98 09/17/18 16:00 98 09/17/18 15:50 09/17/18 15:40 99 09/17/18 15:30 95 09/17/18 15:20 09/17/18 15:16 97 Recovery Score Activity: Moves 4 extremities Respiration: Deep Breath/Cough Consciousness: Fully Awake Oxygen Saturation: > 92% On Room Air Discharge Sedation Level of Care: Fast Track Phase II Post Sedation Plan On clinical assessment, the patient appears to have tolerated the sedation without complications. Patient is recovering as anticipated. Patient will continue to be monitored by nursing and may be discharged when sedation discharge criteria are met per below protocol. Upon Completions of procedure and additional 15 minutes continue every 5 minute vital signs and the P.A.R. score; then discharge to a Phase I or Fast Track to Phase II per the following guidelines: * Discharge Patient to appropriate Phase II area if PAR is 8 or greater or return to pre- procedure baseline. The post - procedure orders will be as directed. * If PAR score is less than 8 or not return to pre-procedure baseline then patient will follow Phase I monitoring till PAR is reached for Phase II. The Phase I may be done in procedure room or may call to secure a Phase I area. * If naloxone or flumazenil are used for reversal, hold in Phase I for continued monitoring from when last reversal dose was given for a minimum of 60 minutes or longer pending the nurse and/or physician discretion of patient condition before discharge to Phase II. Please call the Sedation Physician to re-evaluate and complete post-note for discharge to Phase II area. Do NOT discharge from procedure sedation or Phase 1 until post- sedation evaluation note is complete by procedure /sedation MD Sedation Discharge Instructions to be given to the patient at discharge to home.
[2018-09-18] MEDS ORDERED: ACETAMINOPHEN W/CODEINE #3 1 TAB PO PRN (15:20)
[2018-09-18] MEDS ORDERED: ACETAMINOPHEN 325 MG TAB PO PRN (15:20)
[2018-09-18] MEDS: HydrALAZINE HCL 20 MG/ML VIAL IV PRN (16:14)
[2018-09-18] MEDS ORDERED: LISINOPRIL 5 MG TAB PO ONE (16:30)
[2018-09-18] MEDS: CARVEDILOL 25 MG TAB PO SCH ×2 (16:32→21:15)
[2018-09-18] MEDS: ATORVASTATIN 40 MG TAB PO SCH (21:15)
[2018-09-18] MEDS: ALFUZOSIN HCL 10 MG TAB PO SCH (21:15)
--- NOTE | 2018-09-18 23:50 | Hospitalist Progress Note ---
Date of Service September 18, 2018 Assessment & Plan (1) Third degree heart block: -Admitted to PCU -EKG reviewed, reveals third-degree heart block with heart rate in the 20s to 30s while at bedside during admission Pacemaker was placed. Resumed beta blockers which were held. -2D echo ordered -Trend troponins (2) Dizziness: -Secondary to third-degree heart block as above (3) Nonischemic cardiomyopathy: -As above, mild, follows with Dr. Mcgee and Deanna Burger as an outpatient (4) Coronary artery disease: - hold BB, cont ASA 81 mg (5) Hypertension: BP remains elevated. resumed BB Will add lisnopril for this evening and add amlodipine in the AM. (6) AAA (abdominal aortic aneurysm): - Mar 2017, measured 3.2 infrarenal AAA at that time will need PCP to f/u with this For AAA 3.0 to 3.9 cm, imaging at 3 year intervals (7) Hyperlipidemia: -Continue atorvastatin (8) Laryngeal cancer: -Originally diagnosed in 2011, status post XRT, chemotherapy, in remission -Hold Keflex, patient had been taking this since 09/11/18 for sore throat per Dr. CONNER, ENT, reports sore throat is much improved. Patient reports Dr. Alvarenga used scope to visualize this during that visit, said did not appear concerning for cancer, although it appeared red, continue PPI. (9) Hemochromatosis: -Chronic (10) Obesity: -BMI of 35.9, diet and exercise to be encouraged upon discharge -Appears to be mostly abdominal obesity, (11) DVT prophylaxis: -Teds, no chemical prophylaxis in the setting of possible pacemaker placement tomorrow Disposition: Patient from home, lives with (Janet) who is handicapped. Plan is likely to discharge on 09/19 Subjective 73 yo male reports doing well. He has no new complaints. He tolerated his procedure. Review of Systems Review of Systems: Constitutional: No fever, sweats or chills Eyes: No diplopia, no worsening or blurred vision ENT: normal hearing, no trouble swallowing Respiratory: No cough, sputum, dyspnea at rest or on exertion, no respiratory complaints while in the ER Cardiovascular: no chest pain, tightness or palpitations Abdomen: No pain, nausea, vomiting, diarrhea or constipation Musculoskeletal: No joint pain, calf pain, swelling Neurologic: No weakness, + numbness/tingling in feet bilaterally chronic, no balance problems Psychiatric: No anxiety or depression Skin: No rash or itch Physical Exam Physical Exam: General: awake, alert, no apparent distress, obese Head: Normocephalic, atraumatic ENT: PERRL, EOMI, no pharyngeal exudate, mucous membranes moist Chest: Clear to auscultation, on room air, no adventitious breath sounds Cardiac:regular rate cannot appreciate murmur, no JVD, normal peripheral pulses Abdominal: + Protuberant abdomen, NABS x 4 quadrants, soft, nontender to palpation, no rebound, guarding or tenderness Extremities: Normal inspection, no peripheral edema or erythema, calfs nontender to palpation Psych: Normal mood and affect Neuro: AAO x 3, no motor deficits, speech is clear, no peripheral sensory deficits Skin: no rash or erythema Results & Data Vital Signs (Past 12 Hours) Vital Signs Temp Pulse Resp BP BP Pulse Ox 09/18/18 23:08 36.5 C 64 19 123/70 94 09/18/18 20:36 36.6 C 66 16 150/70 H 94 09/18/18 20:11 36.6 C 67 20 138/66 96 09/18/18 15:58 36.6 C 67 20 213/97 H 96 09/18/18 12:21 36.5 C 26 L 22 140/60 98 PG Care Time/CCT Total # of Minutes Spent Total Time Spent with Patient: Total time spent is greater than 50% in coordination of care (as documented) at patient's floor/unit and/or counseling patient:
[2018-09-19 06:50] LABS: Hematocrit (blood only) 39.8 % (42-52); Mean Corpuscular Hgb Conc 35.2 g/dL (32-36); Mean Corpuscular Volume 94.5 fL (80-100); Mean Platelet Volume 11.1 fL (7.4-10.4); Platelet Count 127 K/uL (130-400); RDW Coefficient of Variation 13.1 % (11.5-14.5); RDW Standard Deviation 45.2 fL (36.4-46.3); Red Blood Count 4.21 M/uL (4.7-6.1); White Blood Count 6.75 K/uL (4.8-10.8)
[2018-09-19 07:00] LABS: INR 1.1 (0.9-1.1); Prothrombin Time 10.8 Seconds (9.0-12.0)
[2018-09-19 07:27] LABS: Albumin Level 3.3 gm/dl (3.4-5.0); BUN Creatinine Ratio 16.3 (10-20); Calcium 8.7 mg/dl (8.5-10.1); Creatinine Clr Calc Pharmacy 92.5 ml/min; Est GFR (African American) 81.8; Est GFR (Non-African American) 70.6; Potassium 3.9 mmol/L (3.5-5.1)
[2018-09-19 07:30] LABS: Globulin 3.3 gm/dl (2.5-4.0); Total Protein 6.6 gm/dl (6.4-8.2)
--- NOTE | 2018-09-19 07:58 | XRay Report ---
XR chest 2V routine CLINICAL HISTORY: Chest x-ray status post pacemaker placement COMPARISON STUDY: 09/17/2018, CT scan of October 2015 FINDINGS: The heart is mildly enlarged. There is a left subclavian dual-chamber central venous pacema ker. Electrode position is unremarkable. There is a trace left pleural effusion. There is no pneumoth orax. There is a 15 mm left lower lung zone pulmonary nodule. This is felt to correspond to a calcifi ed granuloma as visualized on the CT scan performed October 2015[ IMPRESSION: 1. No evidence of pneumothorax status post placement of a left subclavian dual-chamber central venous pacemaker. Electronically signed by: Aakash Farley M.D. 09/19/2018 7:57 AM
--- NOTE | 2018-09-19 08:48 | Cardiology Progress Note ---
Date of Service September 19, 2018 Assessment & Plan (1) Syncope: He had an episode of syncope prior to admission and after that noticed his heart rate to be slow. I suspect he went into heart block then and had syncope related to that. There is no evidence that he has a tachyarrhythmia although it was conceivable. I would not investigate further and the pacemaker will monitor for tachyarrhythmias. (2) Third degree heart block: He presents in complete heart block. He was on carvedilol which conceivably could contribute, although he should remain on it due to his prior cardiomyopathy, but with discontinuation and more than 24 hours after his last dose he has had no improvement in conduction. He has normal left ventricular function so a biventricular device was not indicated, although he has the risk of developing a pacer induced cardiomyopathy. That does not always happen however therefore standard RV pacing was used. (3) Coronary artery disease: He has nonobstructive coronary artery disease, however he has no indication at this was an ischemic event. Troponins were done and were negative x3. (4) Nonischemic cardiomyopathy: He had a nonischemic cardiomyopathy which has recovered with medical therapy. Hopefully he will not have recurrence with ventricular pacing, we should continue his heart failure medications including carvedilol and l isinopril. For hypertension we can increase his lisinopril if needed. He also could have a higher dose of carvedilol since he is a large individual. (5) Status post placement of cardiac pacemaker: His pacemaker is working well, the site looks good and the leads are in good position on x-ray. From my standpoint he is stable for discharge. I have entered follow-up appointments in his discharge orders. Subjective He is feeling well today, he feels much better following pacemaker implantation. He has no incisional discomfort, no chest discomfort. He was very hypertensive postop, probably due to beta-bhanu withdrawal preoperatively. Physical Exam Physical Exam: The incision is clean and dry, minimal blood on dressing, no bleeding or swelling. Minimal tenderness. Results & Data Vital Signs (Past 12 Hours) Vital Signs Temp Pulse Resp BP Pulse Ox 09/19/18 07:49 36.4 C L 60 19 166/75 H 96 09/19/18 04:13 36.4 C L 60 18 125/73 95 09/18/18 23:08 36.5 C 64 19 123/70 94 Laboratory Results Abnormal lab results 09/19/18 09/19/18 Range/Units 06:27 06:27 RBC 4.21 L (4.7-6.1) M/uL Hct 39.8 L (42-52) % Plt Count 127 L (130-400) K/uL MPV 11.1 H (7.4-10.4) fL Chloride 108 H (98-107) mmol/L Glucose 106 H (70-99) mg/dl Albumin 3.3 L (3.4-5.0) gm/dl Diagnostic Findings Electrocardiogram postop: Atrial sensing with ventricular pacing and appropriate ventricular capture. Telemetry: Normal pacemaker function. Chest x-ray: Good lead position, no pneumothorax Pacemaker evaluation: Excellent pacing and sensing characteristics in both leads. PG Care Time/CCT Total # of Minutes Spent Total Time Spent with Patient: Total time spent is greater than 50% in coordination of care (as documented) at patient's floor/unit and/or counseling patient:
[2018-09-19] MEDS: CARVEDILOL 25 MG TAB PO SCH (08:55)
[2018-09-19] MEDS: ASPIRIN 81 MG ECTAB PO SCH (08:56)
[2018-09-19] MEDS: PANTOprazole 40 MG TAB PO SCH (08:56)
[2018-09-19] MEDS ORDERED: AMLODIPINE BESYLATE 5 MG TAB PO ONE (10:14)
[2018-09-19] MEDS ORDERED: LISINOPRIL 5 MG TAB PO SCH (21:00)
[2018-09-20] MEDS ORDERED: AMLODIPINE BESYLATE 5 MG TAB PO SCH (09:00)
--- NOTE | 2018-09-27 21:40 | Discharge Summary ---
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 The pt notes he began feeling lightheaded and dizzy last Monday. Patient reports he was pulling weeds outside and blacked out, fell to the ground and hit his left elbow, denies injury to any other part of the body denies head trauma and reports that he came to very quickly. This event was unwitnessed. Once awake again he proceeded to take it easy the rest of the evening. Patient reports he then again felt onset of lightheadedness when he went from sitting to standing position, all day yesterday. Patient may need outpatient appointment with cardiology, as he follows with Dr. Aguero routinely. Patient was referred from the cardiology office to the ER with third-degree heart block. EKG completed revealing this. He did take all of his morning medications including carvedilol 25 mg. He has not been taking furosemide routinely, last dose was about 1 week ago. He also notes that he was recently started on Keflex 500 4 times daily last Monday for a sore throat by Dr. Alvarenga, ENT, with his history of laryngeal cancer. Principal Diagnosis third degree heart block Discharge Exam General: awake, alert, no apparent distress, obese Head: Normocephalic, atraumatic ENT: PERRL, EOMI, no pharyngeal exudate, mucous membranes moist Chest: Clear to auscultation, on room air, no adventitious breath sounds Cardiac: regular rate, no murmur, no JVD, normal peripheral pulses Abdominal: NABS x 4 quadrants, soft, nontender to palpation, no rebound, guarding or tenderness Extremities: Normal inspection, no peripheral edema or erythema, calfs nontender to palpation Psych: Normal mood and affect Neuro: AAO x 3, no motor deficits, speech is clear, no peripheral sensory deficits Skin: no rash or erythema Discharge Data Allergies Allergy/AdvReac Type Severity Reaction Status Date / Time isosorbide AdvReac Severe Headache, Verified 09/17/18 12:39 BLINDNESS losartan AdvReac Unknown HEADACHE, Verified 09/17/18 12:39 BLINDNESS Consultations 09/17/18 13:29 ED Decision to Admit Stat 09/17/18 14:00 Consult Cardiology Routine 09/17/18 14:01 Consult Case Management - Discharge Planning Routine Procedures Performed Operation Date: 09/18/18 13:00 Actual Procedures p Pacer with A/V Leads (Dual) - Matthew May MD Operation Date: 09/18/18 13:00 <No data on this case meets the specified criteria> Ordered Studies 09/18/18 07:00 EP Lab Images for PACS ONCE Hospital Course (1) Third degree heart block: -Admitted to PCU -EKG reviewed, reveals third-degree heart block with heart rate in the 20s to 30s while at bedside during admission Pacemaker was placed. Resumed beta blockers which were held. Appreciate input from cardio (1) Syncope: He had an episode of syncope prior to admission and after that noticed his heart rate to be slow. I suspect he went into heart block then and had syncope related to that. There is no evidence that he has a tachyarrhythmia although it was conceivable. I would not investigate further and the pacemaker will monitor for tachyarrhythmias. (2) Third degree heart block: He presents in complete heart block. He was on carvedilol which conceivably could contribute, although he should remain on it due to his prior cardiomyopathy, but with discontinuation and more than 24 hours after his last dose he has had no improvement in conduction. He has normal left ventricular function so a biventricular device was not indicated, although he has the risk of developing a pacer induced cardiomyopathy. That does not always happen however therefore standard RV pacing was used. (3) Coronary artery disease: He has nonobstructive coronary artery disease, however he has no indication at this was an ischemic event. Troponins were done and were negative x3. (4) Nonischemic cardiomyopathy: He had a nonischemic cardiomyopathy which has recovered with medical therapy. Hopefully he will not have recurrence with ventricular pacing, we sh ould continue his heart failure medications including carvedilol and lisinopril. For hypertension we can increase his lisinopril if needed. He also could have a higher dose of carvedilol since he is a large individual. (5) Status post placement of cardiac pacemaker: His pacemaker is working well, the site looks good and the leads are in good position on x-ray. From my standpoint he is stable for discharge. I have entered follow-up appointments in his discharge orders. (2) Dizziness: -Secondary to third-degree heart block as above (3) Nonischemic cardiomyopathy: -As above, mild, follows with Dr. Mcgee and Deanna Burger as an outpatient (4) Coronary artery disease: - resume BB, cont ASA 81 mg (5) Hypertension: BP remains elevated. resumed BB Will add lisinopril for this evening and add amlodipine in the AM. (6) AAA (abdominal aortic aneurysm): - Mar 2017, measured 3.2 infrarenal AAA at that time will need PCP to f/u with this For AAA 3.0 to 3.9 cm, imaging at 3 year intervals (7) Hyperlipidemia: -Continue atorvastatin (8) Laryngeal cancer: -Originally diagnosed in 2011, status post XRT, chemotherapy, in remission -Hold Keflex, patient had been taking this since 09/11/18 for sore throat per Dr. CONNER, ENT, reports sore throat is much improved. Patient reports Dr. Alvarenga used scope to visualize this during that visit, said did not appear concerning for cancer, although it appeared red, continue PPI. (9) Hemochromatosis: -Chronic (10) Obesity: -BMI of 35.9, diet and exercise to be encouraged upon discharge -Appears to be mostly abdominal obesity, (11) DVT prophylaxis: -Teds, no chemical prophylaxis in the setting of possible pacemaker placement tomorrow Disposition: Patient from home, lives with (Janet) who is handicapped. Plan to discharge on 09/19 Total Time Total Time Spent Total Time Spent (In Minutes): 32 Total Time Includes: Examination of the Patient, Discharge Planning and Medication Reconciliation Discharge Plan Discharge Items Patient Disposition: Home - Self-Care Reason For Visit: THIRD DEGREE HEART BLOCK Discharge Diagnosis: third degree heart block Discharge Goals: Decrease discomfort Activity: Resume your previous activity Non-emergency contact: Primary Care Provider Call non-emergency contact if: you have any medication questions Follow-up/Referrals: Matthew May MD [Physician] - 09/21/18 9:30 am Joe Marsh MD [Primary Care Provider] - Diet: Regular Addtl Provider Instructions: ACTIVITY RECOMMENDATIONS: * Do not raise affected arm over head for 2 weeks. SPECIAL CARE INSTRUCTIONS: * If bleeding occurs, apply direct pressure to area for 5 minutes. * Call your doctor if you have severe pain, fever, drainage or bleeding at site. * Keep dressing on and dry for 48 hours then remove. * Keep any scheduled doctor's appointment. * Implant Card - hand held device with website information given. SKIN IRRITATION: * You may experience some redness and/or swelling in the area where radiation was administered. If any skin irritation occurs, please contact your family physician. FOLLOW UP VISIT: Keep any scheduled doctor appointments. Prescriptions: New amlodipine [Norvasc] 5 mg Tablet 2.5 mg PO QAM Qty: 45 RF: 0 lisinopril [Zestril] 5 mg Tablet 5 mg PO QPM Qty: 30 RF: 0 Continued cephalexin [Keflex] 500 mg capsule 500 mg PO QID Qty: 40 RF: 0 omeprazole 40 mg capsule,delayed release(DR/EC) 40 mg PO DAILY RF: 0 atorvastatin [Lipitor] 80 mg Tablet 80 mg PO HS RF: 0 carvedilol [Coreg] 25 mg tablet 25 mg PO BID RF: 0 aspirin [Aspirin Low Dose] 81 mg Tablet,Delayed Release (Dr/Ec) 81 mg PO DAILY RF: 0 furosemide [Lasix] 20 mg Tablet 20 mg PO QPM RF: 0 alfuzosin [Uroxatral] 10 mg tablet extended release 24 hr 10 mg PO HS RF: 0 Stand-Alone Forms: [facility]/Other Patient Handouts: Pacemakers Discharge Orders: Discharge Order (Routine); Ordered 09/19/18 Ordered By: Sanjeev Mantilla Admission Data Admit Date/Time: 09/17/18 13:59 Attending Provider: Sanjeev Mantilla Admit Provider: Radha Stallings Primary Care Provider: Joe Marsh Other Providers: Matthew May Service: Telemetry Other Interventions: Discharge Summary Assessment (RN) Last Done: 09/19/18 11:24 DC Date/Time DO NOT enter until pt leaves facility: 09/19/18 11:52
== END 2018-09-19 11:52 | disposition home or self-care (01) | DRG 243 ==
LOC: ED 11:42 → 2S 13:59 → SUATTDRO 13:59 → 2S 15:16
DX: E78.5 Hyperlipidemia, unspecified; Z79.899 Other long term (current) drug therapy; E66.9 Obesity, unspecified; I25.10 Atherosclerotic heart disease of native coronary artery without angina pectoris; Z87.891 Personal history of nicotine dependence; I42.9 Cardiomyopathy, unspecified; R07.9 Chest pain, unspecified; G62.0 Drug-induced polyneuropathy; Z88.8 Allergy status to other drugs, medicaments and biological substances; I71.4 Abdominal aortic aneurysm, without rupture; Z68.35 Body mass index [BMI] 35.0-35.9, adult; I10 Essential (primary) hypertension; T45.1X5S Adverse effect of antineoplastic and immunosuppressive drugs, sequela; E83.119 Hemochromatosis, unspecified; Z79.82 Long term (current) use of aspirin; I44.2 Atrioventricular block, complete

== ENCOUNTER 2019-04-04 19:32 | Inpatient (IN) ==
[2019-04-04] MEDS ORDERED: NITROGLYCERIN/D5W 100 MCG/ML BTL ONE (19:42)
[2019-04-04] MEDS ORDERED: STAT IV Infusion **Titration per Protocol STA (19:43)
[2019-04-04] MEDS ORDERED: NITROGLYCERIN/D5W 100MCG/ML 250 ML IV SCH (19:45)
[2019-04-04] MEDS ORDERED: NITROGLYCERIN 2% OINTMENT 30GM TUBE EXT SCH (19:45)
[2019-04-04 19:59] LABS: Basophils # (auto) 0.03 K/uL (0-0.2); Basophils % (auto) 0.3 %; Eosinophils # (auto) 0.06 K/uL (0-0.5); Eosinophils % (auto) 0.6 %; Hematocrit (blood only) 46.9 % (42-52); Hemoglobin 16.7 g/dL (14.0-18.0); Immature Granulocytes # (auto) 0.02 K/uL (0.00-0.02); Immature Granulocytes % (auto) 0.2 %; Lymphocytes # (auto) 0.54 K/uL (1.2-3.4); Lymphocytes % (auto) 5.2 %; Mean Corpuscular Hemoglobin 33.3 pg (25-34); Mean Corpuscular Hgb Conc 35.6 g/dL (32-36); Mean Corpuscular Volume 93.4 fL (80-100); Mean Platelet Volume 10.4 fL (7.4-10.4); Monocytes # (auto) 0.58 K/uL (0.11-0.59); Monocytes % (auto) 5.6 %; Neutrophils # (auto) 9.09 K/uL (1.4-6.5); Neutrophils % (auto) 88.1 %; Platelet Count 154 K/uL (130-400); RDW Coefficient of Variation 13.3 % (11.5-14.5); RDW Standard Deviation 45.3 fL (36.4-46.3); Red Blood Count 5.02 M/uL (4.7-6.1); White Blood Count 10.32 K/uL (4.8-10.8)
--- NOTE | 2019-04-04 19:59 | XRay Report ---
XR chest 1V portable HISTORY: 74 years-old Male Dyspnea acute shortness of breath COMPARISON: Chest radiograph 11/15/2018 TECHNIQUE: Portable AP view of the chest FINDINGS: Cardiac silhouette is enlarged. Interval development of pulmonary vascular congestion with right grea ter than left mixed interstitial and alveolar opacities. No pneumothorax. No large pleural effusion. 1.6 cm calcified granuloma of the left lung base redemonstrated. Unchanged left subclavian pacer. Deg enerative changes of the shoulders and spine. IMPRESSION: Cardiomegaly with right greater than left mixed interstitial and alveolar opacities sugge st asymmetric pulmonary edema versus multifocal pneumonia. ACT 112: Negative or not required by law. The above report was generated using voice recognition software. It may contain grammatical, syntax o r spelling errors. Electronically signed by: John Brenner M.D. 04/04/2019 7:57 PM
[2019-04-04 20:05] LABS: Base Excess VBG -1.4 mEq/L; Oxygen Saturation VBG 71.8 %; pH VBG 7.36 (7.36-7.41)
[2019-04-04] MEDS ORDERED: CEFEPIME 1,000 MG in SYRINGE 0 ML IV STA (20:06)
[2019-04-04] MEDS ORDERED: AZITHROMYCIN 250 MG TAB PO ONE (20:06)
[2019-04-04 20:14] LABS: INR 1.1 (0.9-1.1); Partial Thromboplastin Ratio 0.9; Partial Thromboplastin Time 24.8 Seconds (21.0-31.0); Prothrombin Time 10.9 Seconds (9.0-12.0)
[2019-04-04] MEDS ORDERED: NITROGLYCERIN 2% OINTMENT 30GM TUBE ONE (20:15)
[2019-04-04] MEDS ORDERED: NITROGLYCERIN 2% OINTMENT 30GM TUBE EXT ONE (20:15)
[2019-04-04 20:17] LABS: Alanine Aminotransferase 30 U/L (12-78); Albumin Level 3.6 gm/dl (3.4-5.0); Aspartate Aminotransferase 40 U/L (15-37); BUN Creatinine Ratio 15.6 (10-20); Blood Urea Nitrogen 20 mg/dl (7-18); Calcium 8.6 mg/dl (8.5-10.1); Carbon Dioxide 25 mmol/L (21-32); Chloride 105 mmol/L (98-107); Est GFR (African American) 65.8; Est GFR (Non-African American) 56.8; Glucose 172 mg/dl (70-99); Potassium 3.9 mmol/L (3.5-5.1); Sodium 137 mmol/L (136-145)
[2019-04-04 20:17] LABS: Influenza B virus by PCR Neg for Influ B (Neg)
[2019-04-04 20:21] LABS: Albumin Globulin Ratio 0.9 (0.9-2); Alkaline Phosphatase 142 U/L (45-117); Bilirubin,Total 0.9 mg/dl (0.2-1); Globulin 4.2 gm/dl (2.5-4.0); NT Pro B Type Natriuretic Pept 815 pg/ml (0-900); Total Protein 7.8 gm/dl (6.4-8.2); Troponin I 0.032 ng/ml (0-0.045)
[2019-04-04] MEDS ORDERED: FUROSEMIDE 40 MG/4 ML VIAL IV STA ×2 (20:24→21:33)
[2019-04-04] MEDS ORDERED: OSELTAMIVIR PHOSPHATE 75 MG CAP PO STA (21:14)
[2019-04-04] MEDS ORDERED: PIPERACILL/TAZOBAC CONSULT ACTIVE PRN (21:29)
--- NOTE | 2019-04-04 21:37 | History & Physical Report ---
Date of Service April 04, 2019 Assessment & Plan (1) Acute respiratory failure with hypoxia: Acute respiratory failure with hypoxia, secondary to combination of CHF exacerbation and presumptive bacterial pneumonia secondary to influenza A- Admit to monitored bed, with treatment for both and follow serial imaging studies. Continue oxygen mask, and titrate downward nasal cannula as symptoms improve. Present on Admission?: Yes (2) Community acquired pneumonia, bilateral: Continue azithromycin IV and Zosyn IV begun in the ED. Guaifenesin extended release 600 mg p.o. twice daily. Duonebs every 4 hours while awake and every 2 hours when necessary. Sputum Gram stain and culture Pulmicort Respules 0.5 mg inhaled twice daily. Present on Admission?: Yes (3) Influenza A: Continue Tamiflu 75 mg p.o. twice daily begun in the ED. Present on Admission?: Yes (4) Coronary artery disease: CAD/hypertension/complete AV block with placement of cardiac pacemaker/CHF exacerbation- The patient will be admitted to telemetry for serial cardiac enzymes, serial EKG's, cardiac rhythm monitoring and a 2-D echocardiogram with Dopplers. Continue aspirin 81 mg daily, carvedilol 25 mg p.o. twice daily. Hold oral furosemide 20 mg every morning, give furosemide 40 mg IV now and 40 mg IV every morning. Present on Admission?: Yes (5) CHF (congestive heart failure): See above Present on Admission?: Yes (6) Atrioventricular block, complete: See above Present on Admission?: Yes (7) Status post placement of cardiac pacemaker: See above Present on Admission?: Yes (8) Nonischemic cardiomyopathy: See above Present on Admission?: Yes (9) Hypertension: See above Present on Admission?: Yes (10) BPH loc w urin obs/LUTS: BPH with urinary obstruction and LUTS/bladder cancer Continue with alfuzosin 10 mg p.o. at bedtime. Present on Admission?: Yes (11) Bladder cancer: See above Present on Admission?: Yes (12) Hyperlipidemia: Continue with atorvastatin 80 mg p.o. daily Present on Admission?: Yes History of Present Illness Chief Complaint: The patient presents to the emergency department with complaint of 2 days of worsening cough and shortness of breath, which worsened considerably today. 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 He presents to the emergency department with 2 days of worsening shortness of breath, intermittently productive cough, and dyspnea on exertion. In the ED his work-up included initial placement on BiPAP, and as symptoms improved, was able to be changed to oxygen mask. Chest x-ray suggested bilateral infiltrates at the bases, right greater than left and CHF. EKG was V paced. And laboratories were significant for influenza A. Allergies Allergy/AdvReac Type Severity Reaction Status Date / Time isosorbide AdvReac Severe Headache, Verified 04/04/19 20:09 vision loss losartan AdvReac Severe Headache, Verified 04/04/19 20:09 vision loss Home Medications Home Medications Medication Instructions Recorded Confirmed Type aspirin [Aspirin Low Dose] 81 mg PO QAM 04/15/18 04/04/19 History atorvastatin [Lipitor] 80 mg PO HS 04/15/18 04/04/19 History omeprazole 40 mg capsule,delayed 40 mg PO QAM 09/17/18 04/04/19 History release carvedilol 25 mg tablet 25 mg PO BID #180 tab 11/14/18 04/04/19 Rx alfuzosin 10 mg PO HS 11/26/18 04/04/19 History furosemide [Lasix] 20 mg PO QAM 11/26/18 04/04/19 History guaifenesin 600 mg PO Q12H 11/26/18 04/04/19 History ibuprofen 200 mg capsule 200 mg PO DAILY PRN cap 11/28/18 04/04/19 History tramadol 50 mg PO Q6H PRN #20 tab 11/30/18 04/04/19 Rx albuterol sulfate 90 mcg/actuation 2 puffs INH QID #18 gm 04/04/19 04/04/19 Rx aerosol inhaler cefuroxime axetil 500 mg tablet 500 mg PO BID #14 tab 04/04/19 04/04/19 Rx Past Med/Surg History Medical History AAA (abdominal aortic aneurysm) "stable" 3.2cm infrarenal AAA- cardiology monitoring Acid reflux disease Bladder cancer Coronary artery disease non-obstructive Diverticulosis Gout Hyperlipidemia Hypertension Irritable bowel syndrome (Inactive) Laryngeal cancer s/p chemo/XRT treatments Nonischemic cardiomyopathy Pacemaker [employer] implanted 09/2018 2/2 3rd degree AVB Surgical History History of appendectomy History of biopsy of bladder History of colonoscopy History of cystoscopy History of esophagogastroduodenoscopy (EGD) History of tooth extraction Status post placement of cardiac pacemaker 09/2018 Family History Other FHx: cancer FHx: hypertension Social History Preferred Language: American Communication Ability: Effective 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 Beliefs That Will Affect Care: None marital status: Current Living Situation: Spouse Other Information That Helps Us Care for You: No Feels Safe at Home: Yes Safety Concerns: Feels Safe At This Time Smoking Status: Never smoker Tobacco Type: cigarettes ; Second Hand Exposure: No ; Hx Alcohol Use: No Hx Substance Use: No Seatbelt Use: sometimes Review of Systems Review of Systems: The patient denies chest pain, palpitations, lower extremity swelling, sore throat, sweats, vomiting, diarrhea , constipation, abdominal pain, pelvic pain, blood in urine or stool, dysuria, urinary frequency or urgency, lightheadedness, dizziness, headache, memory loss, loss of consciousness, rash, abnormal bruising or bleeding, imbalance, focal or generalized weakness, numbness or tingling in arms or legs, back or neck pain, or night sweats. The review of systems is otherwise negative other than for that already noted above, and at least 10 systems have been reviewed. Physical Exam Physical Exam: The patient is awake, alert and oriented 3, has oxygen mask in place, normocephalic and atraumatic, sitting upright in bed and in mild respiratory distress. HEENT--PERRL, EOMI, mucous membranes and oropharynx dry. Neck--supple. No JVD. No bruits. Thyroid normal, trachea midline, no adenopat hy. Heart--normal S1 and S2. No murmurs, rubs or gallops. Lungs--coarse breath sounds bilaterally with wheezes. Mild respiratory distress, no accessory muscle use. Abdomen--normal bowel sounds and soft. Nontender. Nondistended. Obese. Extremities--no cyanosis or clubbing. 1+ bilateral pretibial pitting edema. Dermatologic--normal skin turgor, normal color, no abnormal lymph nodes, no rash. Neurologic--cranial nerves II through XII grossly intact. Rheumatologic--normal range of motion. Psychiatric--normal affect. Results & Data Vital Signs (Past 12 Hours) Vital Signs Temp Pulse Resp BP Pulse Ox 04/04/19 21:20 92 H 30 H 91 04/04/19 21:12 96 H 24 92 04/04/19 21:11 92 H 22 139/80 92 04/04/19 21:01 96 H 139/81 94 04/04/19 21:00 97 H 93 04/04/19 20:50 91 H 93 04/04/19 20:40 93 H 91 04/04/19 20:30 93 H 145/84 H 96 04/04/19 20:20 94 H 96 04/04/19 20:10 99 H 148/90 H 96 04/04/19 20:08 101 H 145/84 H 98 04/04/19 20:00 101 H 159/82 H 97 04/04/19 19:50 103 H 131/81 96 04/04/19 19:46 106 H 145/93 H 97 04/04/19 19:45 106 H 95 04/04/19 19:41 107 H 96 04/04/19 19:38 108 H 223/122 H 97 04/04/19 19:36 102 H 99 04/04/19 19:30 107 H 32 H 96 04/04/19 19:13 97.5 F L 118 H 40 H 223/122 H 97 Laboratory Results Laboratory Results WBC 10.32 K/uL (4.8-10.8) 04/04/19 19:46 RBC 5.02 M/uL (4.7-6.1) 04/04/19 19:46 Hgb 16.7 g/dL (14.0-18.0) 04/04/19 19:46 Hct 46.9 % (42-52) 04/04/19 19:46 MCV 93.4 fL (80-100) 04/04/19 19:46 MCH 33.3 pg (25-34) 04/04/19 19:46 MCHC 35.6 g/dL (32-36) 04/04/19 19:46 RDW Std Deviation 45.3 fL (36.4-46.3) 04/04/19 19:46 RDW Coeff of [place] 13.3 % (11.5-14.5) 04/04/19 19:46 Plt Count 154 K/uL (130-400) 04/04/19 19:46 MPV 10.4 fL (7.4-10.4) 04/04/19 19:46 Immature Gran % (Auto) 0.2 % 04/04/19 19:46 Neut % (Auto) 88.1 % 04/04/19 19:46 Lymph % (Auto) 5.2 % 04/04/19 19:46 [place] % (Auto) 5.6 % 04/04/19 19:46 Eos % (Auto) 0.6 % 04/04/19 19:46 Baso % (Auto) 0.3 % 04/04/19 19:46 Immature Gran # (Auto) 0.02 K/uL (0.00-0.02) 04/04/19 19:46 Neut # (Auto) 9.09 K/uL (1.4-6.5) H 04/04/19 19:46 Lymph # (Auto) 0.54 K/uL (1.2-3.4) L 04/04/19 19:46 [place] # (Auto) 0.58 K/uL (0.11-0.59) 04/04/19 19:46 Eos # (Auto) 0.06 K/uL (0-0.5) 04/04/19 19:46 Baso # (Auto) 0.03 K/uL (0-0.2) 04/04/19 19:46 PT 10.9 Seconds (9.0-12.0) 04/04/19 19:46 INR 1.1 (0.9-1.1) 04/04/19 19:46 APTT 24.8 Seconds (21.0-31.0) 04/04/19 19:46 PTT Ratio 0.9 04/04/19 19:46 VBG pH 7.36 (7.36-7.41) 04/04/19 19:46 VBG pCO2 45 mmHg (38-50) 04/04/19 19:46 VBG pO2 41 mmHg 04/04/19 19:46 VBG HCO3 24 mmol/L 04/04/19 19:46 VBG O2 Saturation 71.8 % 04/04/19 19:46 VBG Base Excess -1.4 mEq/L 04/04/19 19:46 Barometric Pressure 727.6 mm/Hg 04/04/19 19:46 Sodium 137 mmol/L (136-145) 04/04/19 19:46 Potassium 3.9 mmol/L (3.5-5.1) 04/04/19 19:46 Chloride 105 mmol/L (98-107) 04/04/19 19:46 Carbon Dioxide 25 mmol/L (21-32) 04/04/19 19:46 Anion Gap 7.0 (3-11) 04/04/19 19:46 BUN 20 mg/dl (7-18) H 04/04/19 19:46 Creatinine 1.25 mg/dl (0.6-1.4) 04/04/19 19:46 Est Cr Clr Drug Dosing Not Reportable 04/04/19 19:46 Est GFR ( Amer) 65.8 04/04/19 19:46 Est GFR (Non-Af Amer) 56.8 04/04/19 19:46 BUN/Creatinine Ratio 15.6 (10-20) 04/04/19 19:46 Glucose 172 mg/dl (70-99) H 04/04/19 19:46 Calcium 8.6 mg/dl (8.5-10.1) 04/04/19 19:46 Magnesium 1.7 mg/dl (1.8-2.4) L 04/04/19 23:53 Total Bilirubin 0.9 mg/dl (0.2-1) 04/04/19 19:46 AST 40 U/L (15-37) H 04/04/19 19:46 ALT 30 U/L (12-78) 04/04/19 19:46 Alkaline Phosphatase 142 U/L (45-117) H 04/04/19 19:46 Troponin I 0.411 ng/ml (0-0.045) H* 04/04/19 23:53 NT-Pro-B Natriuret Pep 815 pg/ml (0-900) 04/04/19 19:46 Total Protein 7.8 gm/dl (6.4-8.2) 04/04/19 19:46 Albumin 3.6 gm/dl (3.4-5.0) 04/04/19 19:46 Globulin 4.2 gm/dl (2.5-4.0) H 04/04/19 19:46 Albumin/Globulin Ratio 0.9 (0.9-2) 04/04/19 19:46 Urine Color Yellow 04/04/19 23:20 Urine Appearance Clear (Clear) 04/04/19 23:20 Urine pH 5.0 (4.5-7.5) 04/04/19 23:20 Ur Specific [place] 1.015 (1.000-1.030) 04/04/19 23:20 Urine Protein 2+ (Negative) H 04/04/19 23:20 Urine Glucose (UA) Negative (Negative) 04/04/19 23:20 Urine Ketones Negative (Negative) 04/04/19 23:20 Urine Blood Negative (Negative) 04/04/19 23:20 Urine Nitrite Negative (Negative) 04/04/19 23:20 Urine Bilirubin Negative (Negative) 04/04/19 23:20 Urine Urobilinogen Negative (Negative) 04/04/19 23:20 Ur Leukocyte Esterase Negative (Negative) 04/04/19 23:20 Urine WBC (Auto) 1-5 /hpf (0-5) 04/04/19 23:20 Urine RBC (Auto) 0-4 /hpf (0-4) 04/04/19 23:20 U Hyaline Cast (Auto) 1-5 /lpf (0-5) 04/04/19 23:20 U Epithel Cells (Auto) 5-10 /lpf (0-5) H 04/04/19 23:20 Urine Bacteria (Auto) Negative (Negative) 04/04/19 23:20 Influenza Type A (PCR) Pos for Influ A (Neg) A* 04/04/19 19:42 Influenza Type B (PCR) Neg for Influ B (Neg) 04/04/19 19:42 Diagnostic Findings [facility] [place], [place] [phone] XRay Report Patient: ERIC MADDOX Date: 04/04/19 MR#: [id number]: [id number] [facility] Acct ID:[id number]: Date: 6City Zip: [place] [address] Age: 74Location: ED Sex: M Room/Bed: Att Phy:Diagnosis: RESP DISTRESS Alicia Phy: Joe Marsh MDService Date: 04/04/19 Fam Phy:Interpreting Phy: Tom Brenner Admit Phy: Ordering Phy: Renato Braswell DO cc: ~ XR chest 1V portable HISTORY: 74 years-old Male Dyspnea acute shortness of breath COMPARISON: Chest radiograph 11/15/2018 TECHNIQUE: Portable AP view of the chest FINDINGS: Cardiac silhouette is enlarged. Interval development of pulmonary vascular congestion with right greater than left mixed interstitial and alveolar opacities. No pneumothorax. No large pleural effusion. 1.6 cm calcified granuloma of the left lung base redemonstrated. Unchanged left subclavian pacer. Degenerative changes of the shoulders and spine. IMPRESSION: Cardiomegaly with right greater than left mixed interstitial and alveolar opacities suggest asymmetric pulmonary edema versus multifocal pneumonia. ACT 112: Negative or not required by law. The above report was generated using voice recognition software. It may contain grammatical, syntax or spelling errors. Electronically signed by: John Brenner M.D. 04/04/2019 7:57 PM Dictated: 04/04/191955 Transcribed: 04/04/191955 Code Status & VTE Plan Code Status Full code VTE Prophylaxis Plan VTE Prophylaxis will be ordered: Yes PG Care Time/CCT Total # of Minutes Spent Total Time Spent with Patient: Total time spent is greater than 50% in coordination of care (as documented) at patient's floor/unit and/or counseling patient: Coding Level of Care Code 76377 Initial Inpt Care Lvl 3 Diagnoses Acute respiratory failure with hypoxia J96.01 Community acquired pneumonia, bilateral J18.9 Influenza A J10.1 Coronary artery disease I25.10 CHF (congestive heart failure) I50.9 Heart failure chronicity: unspecified Heart failure type: unspecified Atrioventricular block, complete I44.2 Status post placement of cardiac pacemaker Z95.0 Nonischemic cardiomyopathy I42.8 Hypertension I10 BPH loc w urin obs/LUTS N40.1 Bladder cancer C67.9 Hyperlipidemia E78.5 (1) CHF (congestive heart failure) Heart failure chronicity: unspecified Heart failure type: unspecified Qualified Code(s): I50.9 - Heart failure, unspecified
--- NOTE | 2019-04-04 22:06 | Emergency Department Note ---
Entered by Rhonda Iraheta acting as a scribe for Renato Braswell DO History of Present Illness General Chief complaint: Respiratory Distress Source: patient and EMS Mode of arrival: EMS Limitations: no limitations History of Present Illness Onset (ago): hour(s) 1 Location: chest Radiation: non-radiation Pain Consistency: + constant Relieved By: + medication (DuoNeb, Albuterol, Oxygen) Exacerbated By: + none Associated symptoms: + cough and + other (-rhinorrhea, -sore throat); no chest pain and no fever/chills Treatments prior to arrival: other (DuoNeb, Albuterol, Oxygen) The patient is a 74 year old male who presents to the ED with complaints of respiratory distress. He was brought to the ED via EMS. EMS states he was diagnosed with bronchitis 2 days ago. His breathing has continued to worsen since then. His room air saturation on EMS arrival was 50. EMS placed him on Oxygen and put him on C-Pap. He has had a DuoNeb and Albuterol breathing treatment. He states his symptoms started as a cough, but denies any rhinorrhea or sore throat. He denies any history of asthma or COPD. He does have a history of heart failure. He denies any fevers above 100.4 or chest pain. He does have a pacemaker in place. Home Medications Home Medications Medication Instructions Recorded Confirmed Type aspirin [Aspirin Low Dose] 81 mg PO QAM 04/15/18 04/04/19 History atorvastatin [Lipitor] 80 mg PO HS 04/15/18 04/04/19 History omeprazole 40 mg capsule,delayed 40 mg PO QAM 09/17/18 04/04/19 History release carvedilol 25 mg tablet 25 mg PO BID #180 tab 11/14/18 04/04/19 Rx alfuzosin 10 mg PO HS 11/26/18 04/04/19 History furosemide [Lasix] 20 mg PO QAM 11/26/18 04/04/19 History guaifenesin 600 mg PO Q12H 11/26/18 04/04/19 History ibuprofen 200 mg capsule 200 mg PO DAILY PRN cap 11/28/18 04/04/19 History tramadol 50 mg PO Q6H PRN #20 tab 11/30/18 04/04/19 Rx albuterol sulfate 90 mcg/actuation 2 puffs INH QID #18 gm 02/27/20 02/27/20 Rx aerosol inhaler cefuroxime axetil 500 mg tablet 500 mg PO BID #14 tab 04/04/19 04/04/19 Rx Allergies Allergy/AdvReac Type Severity Reaction Status Date / Time isosorbide AdvReac Severe Headache, Verified 04/04/19 20:09 vision loss losartan AdvReac Severe Headache, Verified 04/04/19 20:09 vision loss Past Med/Surg History Medical History AAA (abdominal aortic aneurysm) "stable" 3.2cm infrarenal AAA- cardiology monitoring Acid reflux disease Bladder cancer Coronary artery disease non-obstructive Diverticulosis Gout Hyperlipidemia Hypertension Irritable bowel syndrome (Inactive) Laryngeal cancer s/p chemo/XRT treatments Nonischemic cardiomyopathy Pacemaker [employer] implanted 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 Surgical History History of appendectomy History of biopsy of bladder History of colonoscopy History of cystoscopy History of esophagogastroduodenoscopy (EGD) History of tooth extraction Status post placement of cardiac pacemaker 09/2018 Family History Other FHx: cancer FHx: hypertension Social History Preferred Language: Serbian Communication Ability: Effective Billing Supervisor Required: No Beliefs That Will Affect Care: None marital status: Current Living Situation: Spouse Feels Safe at Home: Yes Smoking Status: Unknown if ever smoked Hx Alcohol Use: Yes Alcohol type: beer Hx Substance Use: No Seatbelt Use: sometimes Review of Systems See HPI for pertinent positives & negatives. and A total of 10 systems reviewed and were otherwise negative Physical Exam Vital Signs Vital Signs - 24 hr 04/04/19 19:13 04/04/19 19:30 04/04/19 19:36 Temperature 36.4 C L Temperature Source Oral Pulse Rate 118 H 107 H 102 H Pulse Rate from SpO2 Sensor Respiratory Rate 40 H 32 H Respiratory Effort / Characteristics Spontaneous Labored Spontaneous Labored Short of Breath Respiratory Depth Shallow Respiratory Pattern Tachypnea Blood Pressure 223/122 H Blood Pressure Mean 155 Blood Pressure Position Sitting Pulse Oximetry 97 96 99 Oxygen Delivery Method CPAP CPAP Fraction of Inspired Oxygen 50 Sepsis Recent Fever Within 48 Hours No Sepsis New/Unexplained Change in Mental Status No Sepsis Action Taken by Nursing No Action Required 04/04/19 19:38 04/04/19 19:41 04/04/19 19:45 Temperature Temperature Source Pulse Rate 108 H 107 H 106 H Pulse Rate from SpO2 Sensor 108 H 105 H 107 H Respiratory Rate Respiratory Effort / Characteristics Respiratory Depth Respiratory Pattern Blood Pressure 223/122 H Blood Pressure Mean 144 Blood Pressure Position Pulse Oximetry 97 96 95 Oxygen Delivery Method Fraction of Inspired Oxygen Sepsis Recent Fever Within 48 Hours Sepsis New/Unexplained Change in Mental Status Sepsis Action Taken by Nursing 04/04/19 19:46 04/04/19 19:50 04/04/19 20:00 Temperature Temperature Source Pulse Rate 106 H 103 H 101 H Pulse Rate from SpO2 Sensor 106 H 101 H 101 H Respiratory Rate Respiratory Effort / Characteristics Respiratory Depth Respiratory Pattern Blood Pressure 145/93 H 131/81 159/82 H Blood Pressure Mean 105 102 106 Blood Pressure Position Pulse Oximetry 97 96 97 Oxygen Delivery Method Fraction of Inspired Oxygen Sepsis Recent Fever Within 48 Hours Sepsis New/Unexplained Change in Mental Status Sepsis Action Taken by Nursing 04/04/19 20:04 04/04/19 20:08 04/04/19 20:10 Temperature Temperature Source Pulse Rate 101 H 99 H Pulse Rate from SpO2 Sensor 100 H 99 H Respiratory Rate Respiratory Effort / Characteristics Respiratory Depth Respiratory Pattern Blood Pressure 145/84 H 148/90 H Blood Pressure Mean 97 103 Blood Pressure Position Pulse Oximetry 98 96 Oxygen Delivery Method CPAP Fraction of Inspired Oxygen Sepsis Recent Fever Within 48 Hours Sepsis New/Unexplained Change in Mental Status Sepsis Action Taken by Nursing 04/04/19 20:20 04/04/19 20:30 04/04/19 20:40 Temperature Temperature Source Pulse Rate 94 H 93 H 93 H Pulse Rate from SpO2 Sensor 95 H 94 H 93 H Respiratory Rate Respiratory Effort / Characteristics Respiratory Depth Respiratory Pattern Blood Pressure 145/84 H Blood Pressure Mean 97 Blood Pressure Position Pulse Oximetry 96 96 91 Oxygen Delivery Method Fraction of Inspired Oxygen Sepsis Recent Fever Within 48 Hours Sepsis New/Unexplained Change in Mental Status Sepsis Action Taken by Nursing 04/04/19 20:50 04/04/19 21:00 04/04/19 21:01 Temperature Temperature Source Pulse Rate 91 H 97 H 96 H Pulse Rate from SpO2 Sensor 93 H 97 H 95 H Respiratory Rate Respiratory Effort / Characteristics Respiratory Depth Respiratory Pattern Blood Pressure 139/81 Blood Pressure Mean 98 Blood Pressure Position Pulse Oximetry 93 93 94 Oxygen Delivery Method Fraction of Inspired Oxygen Sepsis Recent Fever Within 48 Hours Sepsis New/Unexplained Change in Mental Status Sepsis Action Taken by Nursing 04/04/19 21:11 04/04/19 21:12 04/04/19 21:20 Temperature Temperature Source Pulse Rate 92 H 96 H 92 H Pulse Rate from SpO2 Sensor 93 H 96 H 90 Respiratory Rate 22 24 30 H Respiratory Effort / Characteristics Respiratory Depth Respiratory Pattern Blood Pressure 139/80 Blood Pressure Mean 103 Blood Pressure Position Pulse Oximetry 92 92 91 Oxygen Delivery Method Fraction of Inspired Oxygen Sepsis Recent Fever Within 48 Hours Sepsis New/Unexplained Change in Mental Status Sepsis Action Taken by Nursing GENERAL: Patient is sitting up in bed, alert, in significant distress, on C-Pap, unable to speak EYE EXAM: normal conjunctiva, PERRL and EOM's grossly intact OROPHARYNX: mucous membranes are dry NECK: supple, no nuchal rigidity, no adenopathy, non-tender, positive JVD LUNGS: Diffuse rhonchi bilaterally. Normal chest wall mechanics HEART: Tacky, S1 normal and S2 normal ABDOMEN: abdomen soft, non-tender, normo-active bowel sounds, no masses, no rebound or guarding. BACK: Back is symmetrical on inspection and there is no deformity, no midline tenderness, no CVA tenderness. SKIN: no rashes and no bruising UPPER EXTREMITIES: upper extremities are grossly normal. LOWER EXTREMITIES: Bilateral pitting edema. NEURO EXAM: Normal sensorium, cranial nerves II-XII grossly intact, normal speech, no gross weakness of arms, no gross weakness of legs. Gross sensation intact. Course Course ED COURSE: Vital signs were reviewed and showed the patient is hypertensive, tachycardic and hypoxic. The patients medical record was reviewed The above diagnostic studies were performed and reviewed. ED treatments and interventions as stated above. 193: The patient was evaluated in room B1. A complete history and physical examination was performed. 1941: A ventricularly paced rate of 112 is seen on the monitor. 2024: Upon reevaluation, the patient is resting comfortably. I discussed my findings with the patient and he understands and agrees with the treatment plan. 2034: [facility] the [facility] The patient will be further evaluated. Based on the patients age, coexisting illnesses, exam and lab findings the decision to treat as an outpatient was made. The patient remained stable while under my care. The patient will be evaluated for further management. Administered Medications Discontinued Medications Azithromycin (Zithromax) 500 mg PO NOW ONE Stop: 04/04/19 20:07 Last Admin: 04/04/19 20:32 Dose: 500 mg Documented by: [id number] Furosemide (Lasix) 40 mg IV NOW STA Stop: 04/04/19 20:25 Last Admin: 04/04/19 20:33 Dose: Not Given Documented by: [id number] Nitroglycerin/Dextrose (Nitroglycerin/D5w 100 Mcg/Ml) 250 mls @ 48 mls/hr IV .Q5H13M [facility]; Protocol Stop: 05/04/19 19:44 Last Admin: 04/04/19 20:06 Dose: Not Given Documented by: [id number] Cefepime HCl 1,000 mg/ Syringe 11.3 mls @ 5.5 mls/min IV NOW STA; Protocol Stop: 04/04/19 20:08 Last Admin: 04/04/19 20:32 Dose: 5.5 mls/min Documented by: [id number] Miscellaneous () 1 ea N/A NOW STA Stop: 04/04/19 19:44 Last Admin: 04/04/19 20:06 Dose: Not Given Documented by: [id number] Nitroglycerin (Nitro-Bid 2%) 2 inch EXT Q6H [facility] Stop: 05/04/19 19:44 Last Admin: 04/04/19 20:06 Dose: Not Given Documented by: [id number] Nitroglycerin (Nitro-Bid 2%) Confirm Administered Dose 18 inch .ROUTE .STK-MED ONE Stop: 04/04/19 20:16 Last Admin: 04/04/19 20:32 Dose: Not Given Documented by: [id number] Nitroglycerin (Nitro-Bid 2%) 1 inch EXT NOW ONE Stop: 04/04/19 20:16 Last Admin: 04/04/19 20:23 Dose: 1 inch Documented by: [id number] Nitroglycerin/Dextrose (Nitroglycerin/D5w 100 Mcg/Ml) Confirm Administered Dose 25 mg .ROUTE .STK-MED ONE Stop: 04/04/19 19:43 Last Admin: 04/04/19 20:06 Dose: Not Given Documented by: [id number] Oseltamivir Phosphate (Tamiflu) 75 mg PO NOW STA; Protocol Stop: 04/04/19 21:15 Last Admin: 04/04/19 21:19 Dose: 75 mg Documented by: [id number] Medical Decision Making Differential Diagnosis Differential diagnoses includes but is not limited to pneumonia, bronchitis, COPD/Asthma exacerbation, pneumothorax, pulmonary embolism, congestive heart failure, acute coronary syndrome. Medical Records Attestation: I reviewed the patient's medical records. Home Medications Current Medication List: was personally reviewed by me Laboratory Data Attestation: I reviewed the patient's lab results. Result diagrams: 04/04/19 19:46 04/04/19 19:46 Lab Results 04/04/19 04/04/19 04/04/19 Range/Units 19:42 19:46 19:46 WBC 10.32 (4.8-10.8) K/uL RBC 5.02 (4.7-6.1) M/uL Hgb 16.7 (14.0-18.0) g/dL Hct 46.9 (42-52) % MCV 93.4 (80-100) fL MCH 33.3 (25-34) pg MCHC 35.6 (32-36) g/dL RDW Std Deviation 45.3 (36.4-46.3) fL RDW Coeff of Dewey 13.3 (11.5-14.5) % Plt Count 154 (130-400) K/uL MPV 10.4 (7.4-10.4) fL Immature Gran % (Auto) 0.2 % Neut % (Auto) 88.1 % Lymph % (Auto) 5.2 % Stephens % (Auto) 5.6 % Eos % (Auto) 0.6 % Baso % (Auto) 0.3 % Immature Gran # (Auto) 0.02 (0.00-0.02) K/uL Neut # (Auto) 9.09 H (1.4-6.5) K/uL Lymph # (Auto) 0.54 L (1.2-3.4) K/uL Stephens # (Auto) 0.58 (0.11-0.59) K/uL Eos # (Auto) 0.06 (0-0.5) K/uL Baso # (Auto) 0.03 (0-0.2) K/uL PT 10.9 (9.0-12.0) Seconds INR 1.1 (0.9-1.1) APTT 24.8 (21.0-31.0) Seconds PTT Ratio 0.9 VBG pH (7.36-7.41) VBG pCO2 (38-50) mmHg VBG pO2 mmHg VBG HCO3 mmol/L VBG O2 Saturation % VBG Base Excess mEq/L Barometric Pressure mm/Hg Sodium (136-145) mmol/L Potassium (3.5-5.1) mmol/L Chloride (98-107) mmol/L Carbon Dioxide (21-32) mmol/L Anion Gap (3-11) BUN (7-18) mg/dl Creatinine (0.6-1.4) mg/dl Est Cr Clr Drug Dosing Est GFR ( Amer) Est GFR (Non-Af Amer) BUN/Creatinine Ratio (10-20) Glucose (70-99) mg/dl Calcium (8.5-10.1) mg/dl Total Bilirubin (0.2-1) mg/dl AST (15-37) U/L ALT (12-78) U/L Alkaline Phosphatase (45-117) U/L Troponin I (0-0.045) ng/ml NT-Pro-B Natriuret Pep (0-900) pg/ml Total Protein (6.4-8.2) gm/dl Albumin (3.4-5.0) gm/dl Globulin (2.5-4.0) gm/dl Albumin/Globulin Ratio (0.9-2) Influenza Type A (PCR) Pos for Influ A A* (Neg) Influenza Type B (PCR) Neg for Influ B (Neg) 04/04/19 04/04/19 Range/Units 19:46 19:46 WBC (4.8-10.8) K/uL RBC (4.7-6.1) M/uL Hgb (14.0-18.0) g/dL Hct (42-52) % MCV (80-100) fL MCH (25-34) pg MCHC (32-36) g/dL RDW Std Deviation (36.4-46.3) fL RDW Coeff of Dewey (11.5-14.5) % Plt Count (130-400) K/uL MPV (7.4-10.4) fL Immature Gran % (Auto) % Neut % (Auto) % Lymph % (Auto) % Stephens % (Auto) % Eos % (Auto) % Baso % (Auto) % Immature Gran # (Auto) (0.00-0.02) K/uL Neut # (Auto) (1.4-6.5) K/uL Lymph # (Auto) (1.2-3.4) K/uL Stephens # (Auto) (0.11-0.59) K/uL Eos # (Auto) (0-0.5) K/uL Baso # (Auto) (0-0.2) K/uL PT (9.0-12.0) Seconds INR (0.9-1.1) APTT (21.0-31.0) Seconds PTT Ratio VBG pH 7.36 (7.36-7.41) VBG pCO2 45 (38-50) mmHg VBG pO2 41 mmHg VBG HCO3 24 mmol/L VBG O2 Saturation 71.8 % VBG Base Excess -1.4 mEq/L Barometric Pressure 727.6 mm/Hg Sodium 137 (136-145) mmol/L Potassium 3.9 (3.5-5.1) mmol/L Chloride 105 (98-107) mmol/L Carbon Dioxide 25 (21-32) mmol/L Anion Gap 7.0 (3-11) BUN 20 H (7-18) mg/dl Creatinine 1.25 (0.6-1.4) mg/dl Est Cr Clr Drug Dosing Not Reportable Est GFR ( Amer) 65.8 Est GFR (Non-Af Amer) 56.8 BUN/Creatinine Ratio 15.6 (10-20) Glucose 172 H (70-99) mg/dl Calcium 8.6 (8.5-10.1) mg/dl Total Bilirubin 0.9 (0.2-1) mg/dl AST 40 H (15-37) U/L ALT 30 (12-78) U/L Alkaline Phosphatase 142 H (45-117) U/L Troponin I 0.032 (0-0.045) ng/ml NT-Pro-B Natriuret Pep 815 (0-900) pg/ml Total Protein 7.8 (6.4-8.2) gm/dl Albumin 3.6 (3.4-5.0) gm/dl Globulin 4.2 H (2.5-4.0) gm/dl Albumin/Globulin Ratio 0.9 (0.9-2) Influenza Type A (PCR) (Neg) Influenza Type B (PCR) (Neg) Imaging Data Radiologist's Impression: Radiology results as stated below per my review and the radiologist's interpretation: XR chest 1V portable HISTORY: 74 years-old Male Dyspnea acute shortness of breath COMPARISON: Chest radiograph 11/15/2018 TECHNIQUE: Portable AP view of the chest FINDINGS: Cardiac silhouette is enlarged. Interval development of pulmonary vascular congestion with right greater than left mixed interstitial and alveolar opacities. No pneumothorax. No large pleural effusion. 1.6 cm calcified granuloma of the left lung base redemonstrated. Unchanged left subclavian pacer. Degenerative changes of the shoulders and spine. IMPRESSION: Cardiomegaly with right greater than left mixed interstitial and alveolar opacities suggest asymmetric pulmonary edema versus multifocal pneumonia. ACT 112: Negative or not required by law. The above report was generated using voice recognition software. It may contain grammatical, syntax or spelling errors. Electronically signed by: John Brenner M.D. 04/04/2019 7:57 PM ECG Data Attestation: I personally reviewed and interpreted this ECG as follows: Indication: + SOB/dyspnea Rate (beats per minute): 132 Rhythm: + other (ventricularly paced) ECG Bazine: + Left axis deviation ECG Findings: no PVCs Blood Pressure Blood Pressure Findings: Elevated blood pressure Blood Pressure Disposition: further management by hospitalist JAMES Narrative Patient is a 74-year-old male with a past medical history nonischemic cardiomyopathy, AAA, pacer, CHF with complete heart block who presents the ER in severe respiratory distress via EMS on CPAP. Upon arrival he is dyspneic, diaphoretic and hypertensive with systolic pressures in the 230s to 240s. He is unable to talk. He was found to be 80% on room air initially upon EMSs arrival. We placed him on BiPAP here. IVs were established blood work was obtained and showed no significant leukocytosis or anemia. INR was unremarkable. VBG was stable as has been on CPAP. BMP along with LFTs was unremarkable. Troponin was detectable but not positive. BNP was not significantly elevated. Patient was flu A+. Chest x-ray with asymmetric edema and a likely right lower lobe infiltrate. I do favor that this combination of CHF and pneumonia. He was given Tamiflu, cefepime and azithromycin. Initially ordered a nitro drip but after 10 minutes of BiPAP pressures trended down as respiratory rate as well as heart rate trended down. He was ventricularly paced. Held on the Lasix once influenza resulted and defer to the hospitalist. Was on Nitropaste. Patient was updated and admitted for respiratory distress, hypoxia, CHF and influenza. Impression & Plan Respiratory distress, CHF (congestive heart failure), Influenza Discharge Plan Visit Data Chief Complaint: Respiratory Distress ED Provider: Renato Braswell Discharge Problem: Respiratory distress, CHF (congestive heart failure), Influenza Patient Disposition: Being Evaluated by Hospitalist Forms Stand Alone Forms: My [facility] Prescriptions Prescriptions: No Action ibuprofen 200 mg capsule 200 mg PO DAILY PRN (Reason: Pain) RF: 0 carvedilol [Coreg] 25 mg tablet 25 mg PO BID Qty: 180 RF: 3 omeprazole 40 mg capsule,delayed release(DR/EC) 40 mg PO QAM RF: 0 albuterol sulfate [ProAir HFA] 90 mcg/actuation HFA aerosol inhaler 2 puffs INH QID Qty: 18 RF: 2 cefuroxime axetil 500 mg tablet 500 mg PO BID Qty: 14 RF: 0 atorvastatin [Lipitor] 80 mg Tablet 80 mg PO HS RF: 0 aspirin [Aspirin Low Dose] 81 mg Tablet,Delayed Release (Dr/Ec) 81 mg PO QAM RF: 0 guaifenesin 600 mg Tablet Extended Release 12hr 600 mg PO Q12H RF: 0 furosemide [Lasix] 20 mg tablet 20 mg PO QAM RF: 0 alfuzosin 10 mg tablet extended release 24 hr 10 mg PO HS RF: 0 tramadol 50 mg Tablet 50 mg PO Q6H PRN (Reason: pain) Qty: 20 RF: 0 Referrals Referrals: Joe Marsh MD [Primary Care Provider] - Discharge Problem: CHF (congestive heart failure) Qualifiers: Heart failure type: unspecified Heart failure chronicity: unspecified Qualified Code(s): I50.9 - Heart failure, unspecified The scribe's documentation has been prepared under my direction and personally reviewed by me in its entirety. I confirm that the note above accurately reflects all work, treatment, procedures, and medical decision making performed by me.
[2019-04-04] MEDS ORDERED: INFLUENZA ADMINISTRATION CHARGE ONE (23:06)
[2019-04-04] MEDS ORDERED: INFLUENZA VACCINE HIGH DOSE 65+ 0.5 ML SYR IM ONE (23:06)
[2019-04-04] MEDS ORDERED: PNEUMOCOCCAL POLYSACCHARIDES 25 MCG/0.5 ML VIAL/SYR IM ONE (23:06)
[2019-04-04] MEDS ORDERED: PNEUMOCOCCAL ADMINISTRATION CHARGE ONE (23:06)
[2019-04-04] MEDS ORDERED: ONDANSETRON INJ 2 MG/ML 2 ML VIAL IV PRN (23:35)
[2019-04-04] MEDS ORDERED: guaiFENesin 600 MG TABCR PO SCH (23:35)
[2019-04-04] MEDS ORDERED: MAGNESIUM HYDROXIDE SUSP 30 ML UDC PO PRN (23:35)
[2019-04-04] MEDS ORDERED: ALUMINUM/MAGNESIUM SUSP 30 ML UDC PO PRN (23:35)
[2019-04-04] MEDS ORDERED: ACETAMINOPHEN 325 MG TAB PO PRN (23:35)
[2019-04-04] MEDS ORDERED: POLYETHYLENE (MIRALAX) 17 GM PACK PO PRN (23:35)
[2019-04-04] MEDS ORDERED: TRAMADOL HCL 50 MG TABLET PO PRN (23:35)
[2019-04-04 23:40] LABS: Appearance Urine Clear (Clear); Bacteria Urine Automated Negative (Negative); Bilirubin Urine Negative (Negative); Blood Urine Negative (Negative); Color Urine Yellow; Glucose Urine UA Negative (Negative); Ketones Urine Negative (Negative); Leukocyte Esterase Urine Negative (Negative); Nitrite Urine Negative (Negative); Protein Urine 2+ (Negative); RBC Urine Automated 0-4 /hpf (0-4); Specific Gravity Urine 1.015 (1.000-1.030); Urobilinogen Urine Negative (Negative)
[2019-04-04] MEDS: PATIENT'S HEIGHT NEEDED SCH (23:53)
[2019-04-05] MEDS: PATIENT'S HEIGHT NEEDED SCH (00:04)
[2019-04-05] MEDS: PIPERACILLIN/TAZOBACTAM 4.5 GM in DEXTROSE 5% 100 ML IV SCH ×3 (00:04→15:26)
[2019-04-05 00:29] LABS: Magnesium 1.7 mg/dl (1.8-2.4); Troponin I 0.411 ng/ml (0-0.045)
[2019-04-05] MEDS: carvediloL 25 MG TAB PO SCH ×3 (01:08→21:19)
[2019-04-05] MEDS: HEPARIN SOD 5,000 UNIT/0.5 ML VIAL SQ SCH ×4 (01:08→21:19)
[2019-04-05] MEDS: BUDESONIDE 0.5 MG/2 ML VIAL (PULMICORT) NEB SCH ×2 (07:01→20:00)
[2019-04-05 08:01] LABS: Basophils # (auto) 0.01 K/uL (0-0.2); Basophils % (auto) 0.1 %; Hemoglobin 14.6 g/dL (14.0-18.0); Immature Granulocytes # (auto) 0.01 K/uL (0.00-0.02); Immature Granulocytes % (auto) 0.1 %; Lymphocytes # (auto) 0.34 K/uL (1.2-3.4); Lymphocytes % (auto) 4.3 %; Mean Corpuscular Hemoglobin 32.5 pg (25-34); Mean Corpuscular Hgb Conc 34.8 g/dL (32-36); Mean Corpuscular Volume 93.5 fL (80-100); Mean Platelet Volume 10.4 fL (7.4-10.4); Monocytes # (auto) 0.24 K/uL (0.11-0.59); Neutrophils # (auto) 7.36 K/uL (1.4-6.5); Neutrophils % (auto) 92.5 %; Platelet Count 133 K/uL (130-400); RDW Coefficient of Variation 13.2 % (11.5-14.5); RDW Standard Deviation 45.4 fL (36.4-46.3); Red Blood Count 4.49 M/uL (4.7-6.1); White Blood Count 7.96 K/uL (4.8-10.8)
[2019-04-05] MEDS: guaiFENesin 600 MG TABCR PO SCH ×2 (08:07→21:18)
[2019-04-05] MEDS: OSELTAMIVIR PHOSPHATE 75 MG CAP PO SCH ×2 (08:08→21:18)
[2019-04-05] MEDS: PANTOprazole 40 MG TAB PO SCH (08:08)
[2019-04-05] MEDS: ASPIRIN 81 MG ECTAB PO SCH (08:08)
[2019-04-05] MEDS: ALBUTEROL HFA 8 GM INHALER INH SCH ×4 (08:09→21:19)
[2019-04-05] MEDS: FUROSEMIDE 40 MG in SYRINGE 0 ML IV SCH (08:14)
[2019-04-05 08:23] LABS: Albumin Level 3.2 gm/dl (3.4-5.0); BUN Creatinine Ratio 20.7 (10-20); Calcium 8.7 mg/dl (8.5-10.1); Creatinine Clr Calc Pharmacy 73.3 ml/min; Est GFR (Non-African American) 52.7; Potassium 3.5 mmol/L (3.5-5.1)
[2019-04-05] MEDS ORDERED: FUROSEMIDE 40 MG/4 ML VIAL IV SCH (09:00)
[2019-04-05] MEDS ORDERED: AZITHROMYCIN 500 MG in DEXTROSE 5% 250 ML IV SCH (09:00)
--- NOTE | 2019-04-05 09:53 | CT Scan Report ---
CT chest wo con CLINICAL HISTORY: hypoxia COMPARISON STUDY: 11/02/2015 CT DOSE: 687.60 mGycm TECHNIQUE: CT of the thorax was performed from the thoracic inlet to the lung bases. Images are revi ewed in the axial, sagittal, and coronal planes. IV contrast was not administered for this examinatio n. A dose lowering technique was utilized adhering to the principles of ALARA. FINDINGS: Thyroid: Imaged portions of the thyroid gland are normal in appearance. Thoracic aorta: The ascending thoracic aorta measures 37 mm at the level of the main pulmonary artery . Heart: The heart is the upper limits of normal in size. There is trace pericardial fluid. There are c oronary artery calcifications. Lungs and pleural spaces: There are small right pleural effusion and trace left pleural fluid. There is a 14 mm calcified granuloma within the lingula. There is calcified granulomas within both lung ap ices. There are several tiny noncalcified pulmonary nodules similar to the preceding study. These are felt to be benign. There is are airspace opacities within the dependent portion of the right upper l obe. There are minimal airspace opacities within the medial aspect of the right middle lobe. There ar e dependent opacities with in the right lower lobe. Mediastinum: Mediastinal lymph nodes are the upper limits of normal in size. Naima: There is no evidence of pathologic hilar adenopathy given the limitations of a noncontrast stud y Axilla: There is no evidence of pathologic axillary lymphadenopathy Upper abdomen: Partially visualized upper abdominal viscera is within normal limits. Skeletal structures: There are no lytic or blastic osseous lesions. IMPRESSION: 1. Right lung airspace opacities, likely infectious/inflammatory 2. Mediastinal lymph nodes are the upper limits of normal in size 3. Stable scattered calcified and noncalcified pulmonary nodules which are felt to be benign ACT 112: Negative or not required by law. Electronically signed by: Aakash Farley M.D. 04/05/2019 9:52 AM
--- NOTE | 2019-04-05 15:37 | XCELERA ---
[id number]
[2019-04-05] MEDS: cefTRIAXone SODIUM 2,000 MG in DEXTROSE 5% 50 ML IV SCH (16:14)
--- NOTE | 2019-04-05 18:26 | Electrocardiogram Report ---
Test Reason : Blood Pressure : / mmHG Vent. Rate : 132 BPM Atrial Rate : 104 BPM P-R Int : 000 ms QRS Dur : 208 ms QT Int : 410 ms P-R-T Axes : 049 -65 093 degrees QTc Int : 607 ms Ventricular-paced rhythm with frequent Premature ventricular complexes Abnormal ECG When compared with ECG of 18-SEP-2018 15:46, Premature ventricular complexes are now Present Vent. rate has increased BY 62 BPM Confirmed by Oscar Cordero ([id number]) on 04/05/2019 6:25:56 PM Referred By: REFERRED SELF Confirmed By:Marcial Cordero
--- NOTE | 2019-04-05 18:31 | Electrocardiogram Report ---
Test Reason : Blood Pressure : / mmHG Vent. Rate : 061 BPM Atrial Rate : 061 BPM P-R Int : 202 ms QRS Dur : 190 ms QT Int : 522 ms P-R-T Axes : -19 134 -51 degrees QTc Int : 525 ms AV dual-paced rhythm Abnormal ECG When compared with ECG of 04-APR-2019 19:37, (unconfirmed) Premature ventricular complexes are no longer Present Vent. rate has decreased BY 71 BPM Confirmed by Oscar Cordero ([id number]) on 04/05/2019 6:31:25 PM Referred By: REFERRED SELF Confirmed By:Marcial Cordero
[2019-04-05] MEDS: ALFUZOSIN HCL 10 MG TAB PO SCH (21:18)
[2019-04-05] MEDS: ATORVASTATIN 40 MG TAB PO SCH (21:19)
--- NOTE | 2019-04-05 22:20 | Hospitalist Progress Note ---
Date of Service April 05, 2019 Assessment & Plan (1) Acute respiratory failure with hypoxia: Acute respiratory failure with hypoxia, secondary to combination of CHF exacerbation and presumptive bacterial pneumonia secondary to influenza A- Admit to monitored bed. Will obtain ct scan of lungs. Will continue antibiotics and tamiflu. Able to titrate oxymask to nasal cannula. Due to QTC prolongation, will switch antibioics to ceftriaxone and doxycycline. (2) Community acquired pneumonia, bilateral: Continue azithromycin IV and Zosyn IV begun in the ED. Guaifenesin extended release 600 mg p.o. twice daily. Duonebs every 4 hours while awake and every 2 hours when necessary. Sputum Gram stain and culture Pulmicort Respules 0.5 mg inhaled twice daily. (3) Influenza A: Continue Tamiflu 75 mg p.o. twice daily begun in the ED. (4) Coronary artery disease: CAD/hypertension/complete AV block with placement of cardiac pacemaker/CHF exacerbation- The patient will be admitted to telemetry for serial cardiac enzymes, serial EKG's, cardiac rhythm monitoring and a 2-D echocardiogram with Dopplers. Continue aspirin 81 mg daily, carvedilol 25 mg p.o. twice daily. Hold oral furosemide 20 mg every morning, give furosemide 40 mg IV now and 40 mg IV every morning. (5) CHF (congestive heart failure): See above (6) Atrioventricular block, complete: See above (7) Status post placement of cardiac pacemaker: See above (8) Nonischemic cardiomyopathy: See above (9) Hypertension: See above (10) BPH loc w urin obs/LUTS: BPH with urinary obstruction and LUTS/bladder cancer Continue with alfuzosin 10 mg p.o. at bedtime. (11) Bladder cancer: See above (12) Hyperlipidemia: Continue with atorvastatin 80 mg p.o. daily Admission and Anticipated Discharge Date Admission Date: April 04, 2019 Subjective Patient is a 74 yo male who reports he continues to feel short of breath. But the severity has improved. Review of Systems Review of Systems: The patient denies chest pain, palpitations, lower extremity swelling, sore throat, sweats, vomiting, diarrhea , constipation, abdominal pain, pelvic pain, blood in urine or stool, dysuria, urinary frequency or urgency, lightheadedness, dizziness, headache, memory loss, loss of consciousness, rash, abnormal bruising or bleeding, imbalance, focal or generalized weakness, numbness or tingling in arms or legs, back or neck pain, or night sweats. The review of systems is otherwise negative other than for that already noted above, and at least 10 systems have been reviewed. Physical Exam Physical Exam: The patient is awake, alert and oriented 3, on nasal cannula, normocephalic and atraumatic, lying in bed and in no distress. HEENT--PERRL, EOMI, mucous membranes and oropharynx dry. Neck--supple. No JVD. No bruits. Thyroid normal, trachea midline, no adenopathy. Heart--normal S1 and S2. No murmurs, rubs or gallops. Lungs--coarse breath sounds bilaterally with wheezes, no accessory muscle use. Abdomen--normal bowel sounds and soft. Nontender. Nondistended. Obese. Extremities--no cyanosis or clubbing. 1+ bilateral pretibial pitting edema. Dermatologic--normal skin turgor, normal color, no abnormal lymph nodes, no rash. Neurologic--cranial nerves II through XII grossly intact. Rheumatologic--normal range of motion. Psychiatric--normal affect. Results & Data ([facility]) Vital Signs (Past 12 Hours) Vital Signs Temp Pulse Pulse Resp BP Pulse Ox 04/05/19 18:54 36.5 C 64 19 148/78 H 96 04/05/19 15:39 36.4 C L 66 20 129/74 99 04/05/19 11:03 36.6 C 77 22 117/67 97 04/05/19 10:57 65 PG Care Time/CCT Total # of Minutes Spent Total Time Spent with Patient: Total time spent is greater than 50% in coordination of care (as documented) at patient's floor/unit and/or counseling patient: Coding Level of Care Code 35286 Subseq Hosp Care Lvl 3 Diagnoses Acute respiratory failure with hypoxia J96.01 Community acquired pneumonia, bilateral J18.9 Influenza A J10.1 Coronary artery disease I25.10 CHF (congestive heart failure) I50.9 Heart failure chronicity: unspecified Heart failure type: unspecified Atrioventricular block, complete I44.2 Status post placement of cardiac pacemaker Z95.0 Nonischemic cardiomyopathy I42.8 Hypertension I10 BPH loc w urin obs/LUTS N40.1 Bladder cancer C67.9 Hyperlipidemia E78.5 Time Spent (min) 35 (1) CHF (congestive heart failure) Heart failure chronicity: unspecified Heart failure type: unspecified Qualified Code(s): I50.9 - Heart failure, unspecified
[2019-04-06 06:29] LABS: Basophils # (auto) 0.01 K/uL (0-0.2); Basophils % (auto) 0.1 %; Eosinophils # (auto) 0.06 K/uL (0-0.5); Eosinophils % (auto) 0.9 %; Hematocrit (blood only) 38.1 % (42-52); Hemoglobin 13.1 g/dL (14.0-18.0); Immature Granulocytes # (auto) 0.01 K/uL (0.00-0.02); Immature Granulocytes % (auto) 0.1 %; Lymphocytes # (auto) 0.88 K/uL (1.2-3.4); Lymphocytes % (auto) 12.6 %; Mean Corpuscular Hemoglobin 32.1 pg (25-34); Mean Corpuscular Hgb Conc 34.4 g/dL (32-36); Mean Corpuscular Volume 93.4 fL (80-100); Mean Platelet Volume 10.6 fL (7.4-10.4); Monocytes # (auto) 0.72 K/uL (0.11-0.59); Monocytes % (auto) 10.3 %; Neutrophils # (auto) 5.32 K/uL (1.4-6.5); Platelet Count 124 K/uL (130-400); RDW Coefficient of Variation 13.6 % (11.5-14.5); RDW Standard Deviation 46.5 fL (36.4-46.3); Red Blood Count 4.08 M/uL (4.7-6.1)
[2019-04-06] MEDS: HEPARIN SOD 5,000 UNIT/0.5 ML VIAL SQ SCH ×3 (06:35→20:48)
[2019-04-06] MEDS: BUDESONIDE 0.5 MG/2 ML VIAL (PULMICORT) NEB SCH ×2 (06:53→20:17)
[2019-04-06 07:02] LABS: Albumin Level 2.9 gm/dl (3.4-5.0); BUN Creatinine Ratio 29.4 (10-20); Calcium 8.5 mg/dl (8.5-10.1); Creatinine Clr Calc Pharmacy 84.1 ml/min; Est GFR (Non-African American) 62.1; Magnesium 2.2 mg/dl (1.8-2.4); Potassium 3.2 mmol/L (3.5-5.1)
[2019-04-06 07:13] LABS: Phosphorus 3.4 mg/dl (2.5-4.9)
[2019-04-06] MEDS: ASPIRIN 81 MG ECTAB PO SCH (09:30)
[2019-04-06] MEDS: ALBUTEROL HFA 8 GM INHALER INH SCH ×4 (09:30→20:47)
[2019-04-06] MEDS: guaiFENesin 600 MG TABCR PO SCH ×2 (09:31→20:46)
[2019-04-06] MEDS: carvediloL 25 MG TAB PO SCH ×2 (09:31→20:44)
[2019-04-06] MEDS: PANTOprazole 40 MG TAB PO SCH (09:31)
[2019-04-06] MEDS: OSELTAMIVIR PHOSPHATE 75 MG CAP PO SCH ×2 (09:32→20:46)
[2019-04-06] MEDS: DOXYCYCLINE HYCLATE 100 MG in DEXTROSE 5% 100 ML IV SCH ×2 (09:32→20:47)
[2019-04-06] MEDS: FUROSEMIDE 40 MG in SYRINGE 0 ML IV SCH (09:43)
--- NOTE | 2019-04-06 12:50 | Electrocardiogram Report ---
Test Reason : Blood Pressure : / mmHG Vent. Rate : 061 BPM Atrial Rate : 061 BPM P-R Int : 182 ms QRS Dur : 232 ms QT Int : 550 ms P-R-T Axes : 081 -78 116 degrees QTc Int : 553 ms AV dual-paced rhythm Abnormal ECG When compared with ECG of 05-APR-2019 07:25, No significant change was found Confirmed by Fran Crane ([id number]) on 04/06/2019 12:50:00 PM Referred By: REFERRED SELF Confirmed By:Fran Crane
[2019-04-06] MEDS ORDERED: POTASSIUM CHLORIDE 20 MEQ TABCR PO STA (15:43)
[2019-04-06] MEDS: cefTRIAXone SODIUM 2,000 MG in DEXTROSE 5% 50 ML IV SCH (16:14)
[2019-04-06] MEDS: POTASSIUM CHLORIDE 20 MEQ TABCR PO SCH (20:45)
[2019-04-06] MEDS: ATORVASTATIN 40 MG TAB PO SCH (20:46)
[2019-04-06] MEDS: ALFUZOSIN HCL 10 MG TAB PO SCH (21:57)
--- NOTE | 2019-04-06 22:47 | Hospitalist Progress Note ---
Date of Service April 06, 2019 Assessment & Plan (1) Acute respiratory failure with hypoxia: Acute respiratory failure with hypoxia, secondary to combination of CHF exacerbation and presumptive bacterial pneumonia secondary to influenza A- Admit to monitored bed. CT scan of lung shows mild inflammatory changes in Right middle lobe which may be pneumonia. Will continue antibiotics and tamiflu. Patient is now on room air Due to QTC prolongation, will continue antibioics: ceftriaxone and doxycycline. (2) Community acquired pneumonia, bilateral: Continue azithromycin IV and Zosyn IV begun in the ED. Guaifenesin extended release 600 mg p.o. twice daily. Duonebs every 4 hours while awake and every 2 hours when necessary. Sputum Gram stain and culture Pulmicort Respules 0.5 mg inhaled twice daily. (3) Influenza A: Continue Tamiflu 75 mg p.o. twice daily. (4) Coronary artery disease: CAD/hypertension/complete AV block with placement of cardiac pacemaker/CHF exacerbation- The patient will be admitted to telemetry for serial cardiac enzymes, serial EKG's, cardiac rhythm monitoring and a 2-D echocardiogram with Dopplers. Continue aspirin 81 mg daily, carvedilol 25 mg p.o. twice daily. Hold oral furosemide 20 mg every morning, give furosemide 40 mg IV now and 40 mg IV every morning. (5) CHF (congestive heart failure): See above .Patient does not appear to be in acute CHF. Patient is on IV lasix to help keep him dry due to his pulmonary infection, however, he is not in acute CHF. (6) Atrioventricular block, complete: See above (7) Status post placement of cardiac pacemaker: See above (8) Nonischemic cardiomyopathy: See above (9) Hypertension: See above (10) BPH loc w urin obs/LUTS: BPH with urinary obstruction and LUTS/bladder cancer Continue with alfuzosin 10 mg p.o. at bedtime. (11) Bladder cancer: See above (12) Hyperlipidemia: Continue with atorvastatin 80 mg p.o. daily Patient will be transferred to the Medical floor Admission and Anticipated Discharge Date Admission Date: April 04, 2019 Subjective 74 yo female reports feeLING BETTER. Patient is still not at baseline at this time. Patient continues to feel SOB, but has improved. Patient also coughing but with less sputum. Review of Systems Review of Systems: The patient denies chest pain, palpitations, lower extremity swelling, sore throat, sweats, vomiting, diarrhea , constipation, abdominal pain, pelvic pain, blood in urine or stool, dysuria, urinary frequency or urgency, lightheadedness, dizziness, headache, memory loss, loss of consciousness, rash, abnormal bruising or bleeding, imbalance, focal or generalized weakness, numbness or tingling in arms or legs, back or neck pain, or night sweats. The review of systems is otherwise negative other than for that already noted above, and at least 10 systems have been reviewed. Physical Exam Physical Exam: The patient is awake, alert and oriented 3, on room air, normocephalic and atraumatic, sitting in chair and in no distress. HEENT--PERRL, EOMI, mucous membranes and oropharynx dry. Neck--supple. No JVD. No bruits. Thyroid normal, trachea midline, no adenopathy. Heart--normal S1 and S2. No murmurs, rubs or gallops. Lungs--improved breath sounds bilaterally with intermittent wheezing, no accessory muscle use. Abdomen--normal bowel sounds and soft. Nontender. Nondistended. Obese. Extremities--no cyanosis or clubbing. 1+ bilateral pretibial pitting edema. Dermatologic--normal skin turgor, normal color, no abnormal lymph nodes, no rash. Neurologic--cranial nerves II through XII grossly intact. Rheumatologic--normal range of motion. Psychiatric--normal affect. Results & Data ([facility]) Vital Signs (Past 12 Hours) Vital Signs Temp Pulse Pulse Resp BP Pulse Ox 04/06/19 22:36 36.6 C 64 18 143/77 H 93 04/06/19 20:21 67 20 94 04/06/19 18:15 64 04/06/19 16:50 36.5 C 63 20 158/88 H 95 04/06/19 15:58 36.6 C 68 20 167/83 H 94 04/06/19 11:58 61 04/06/19 11:23 36.5 C 62 20 128/68 95 PG Care Time/CCT Total # of Minutes Spent Total Time Spent with Patient: Total time spent is greater than 50% in coordination of care (as documented) at patient's floor/unit and/or counseling patient: Coding Level of Care Code 96434 Subseq Hosp Care Lvl 3 Diagnoses Acute respiratory failure with hypoxia J96.01 Community acquired pneumonia, bilateral J18.9 Influenza A J10.1 Coronary artery disease I25.10 CHF (congestive heart failure) I50.9 Heart failure chronicity: unspecified Heart failure type: unspecified Atrioventricular block, complete I44.2 Status post placement of cardiac pacemaker Z95.0 Nonischemic cardiomyopathy I42.8 Hypertension I10 BPH loc w urin obs/LUTS N40.1 Bladder cancer C67.9 Hyperlipidemia E78.5 Time Spent (min) 35 (1) CHF (congestive heart failure) Heart failure chronicity: unspecified Heart failure type: unspecified Qualified Code(s): I50.9 - Heart failure, unspecified
[2019-04-07] MEDS ORDERED: OSELTAMIVIR PHOSPHATE 75 MG CAP PO SCH
[2019-04-07] MEDS ORDERED: cefUROXime axetil 500 MG TAB PO SCH
[2019-04-07] MEDS ORDERED: DOXYCYCLINE HYCLATE 100 MG CAP PO SCH
[2019-04-07] MEDS: HEPARIN SOD 5,000 UNIT/0.5 ML VIAL SQ SCH ×2 (05:50→14:51)
[2019-04-07 06:22] LABS: Basophils # (auto) 0.02 K/uL (0-0.2); Basophils % (auto) 0.4 %; Eosinophils # (auto) 0.05 K/uL (0-0.5); Hematocrit (blood only) 40.6 % (42-52); Immature Granulocytes # (auto) 0.01 K/uL (0.00-0.02); Immature Granulocytes % (auto) 0.2 %; Lymphocytes # (auto) 1.19 K/uL (1.2-3.4); Lymphocytes % (auto) 22.6 %; Mean Corpuscular Hemoglobin 32.4 pg (25-34); Mean Corpuscular Hgb Conc 34.5 g/dL (32-36); Mean Platelet Volume 10.7 fL (7.4-10.4); Monocytes # (auto) 0.52 K/uL (0.11-0.59); Monocytes % (auto) 9.9 %; Neutrophils # (auto) 3.47 K/uL (1.4-6.5); Neutrophils % (auto) 65.9 %; Platelet Count 131 K/uL (130-400); RDW Coefficient of Variation 13.5 % (11.5-14.5); RDW Standard Deviation 46.7 fL (36.4-46.3); Red Blood Count 4.32 M/uL (4.7-6.1); White Blood Count 5.26 K/uL (4.8-10.8)
[2019-04-07 06:51] LABS: BUN Creatinine Ratio 30.8 (10-20); Calcium 8.8 mg/dl (8.5-10.1); Creatinine Clr Calc Pharmacy 98.5 ml/min; Est GFR (African American) 87.2; Est GFR (Non-African American) 75.2; Phosphorus 2.7 mg/dl (2.5-4.9); Potassium 3.8 mmol/L (3.5-5.1)
[2019-04-07] MEDS: BUDESONIDE 0.5 MG/2 ML VIAL (PULMICORT) NEB SCH (07:07)
[2019-04-07] MEDS: OSELTAMIVIR PHOSPHATE 75 MG CAP PO SCH (07:54)
[2019-04-07] MEDS: carvediloL 25 MG TAB PO SCH (07:54)
[2019-04-07] MEDS: ASPIRIN 81 MG ECTAB PO SCH (07:54)
[2019-04-07] MEDS: POTASSIUM CHLORIDE 20 MEQ TABCR PO SCH (07:55)
[2019-04-07] MEDS: ALBUTEROL HFA 8 GM INHALER INH SCH ×2 (07:56→13:03)
[2019-04-07] MEDS: guaiFENesin 600 MG TABCR PO SCH (07:56)
[2019-04-07] MEDS: PANTOprazole 40 MG TAB PO SCH (07:56)
[2019-04-07] MEDS: DOXYCYCLINE HYCLATE 100 MG in DEXTROSE 5% 100 ML IV SCH (07:57)
[2019-04-07] MEDS: FUROSEMIDE 40 MG in SYRINGE 0 ML IV SCH (07:57)
== END 2019-04-07 15:28 | disposition home or self-care (01) | DRG 193 ==
LOC: ED 19:32 → SUATTDRO 21:28 → 2S 21:29 → 2W 04-06 15:46

== ENCOUNTER 2023-09-04 06:55 | Observation (INO) ==
--- NOTE | 2023-06-14 14:41 | PAT Medication Instructions ---
Medication Instructions Date of Service June 14, 2023 Home Medications Medication Instructions Recorded atorvastatin 80 mg tablet (Lipitor) 80 mg PO HS #90 tabs 09/26/22 carvedilol 25 mg tablet 25 mg PO BID #180 tabs 09/26/22 furosemide 20 mg tablet 20 mg PO QAM #90 tabs 09/26/22 Medication List: aspirin 81 mg chewable tablet 81 mg PO QAM fluticasone propionate 50 mcg/actuation nasal spray,suspension (Flonase Allergy Relief) 1 spray intranasal UD PRN Nasal Congestion magnesium hydroxide 400 mg/5 mL oral suspension (Milk of Magnesia) 30 ml PO DAILY PRN Constipation psyllium husk 3.4 gram/5.4 gram oral powder (Metamucil) 1 tbsp PO DAILY PRN Constipation atorvastatin 80 mg tablet (Lipitor) 80 mg PO HS carvedilol 25 mg tablet 25 mg PO BID furosemide 20 mg tablet 20 mg PO QAM gabapentin 100 mg capsule 100 mg PO DAILY PRN pain carvedilol 12.5 mg tablet 12.5 mg PO BID cyanocobalamin (vitamin B-12) 1,000 mcg tablet (Vitamin B-12) 1,000 mcg PO DAILY phenol-phenolate sodium mucosal aerosol spray 1 spray PO UD PRN itchy throat pseudoephedrine 30 mg-acetaminophen 500 mg tablet 1 tab PO UD PRN mucous sucralfate 1 gram tablet 1 g PO QID tamsulosin 0.4 mg capsule (Flomax) 0.4 mg PO HS MEDICATION INSTRUCTIONS: Continue as directed fluticasone propionate 50 mcg/actuation nasal spray,suspension (Flonase Allergy Relief) 1 spray intranasal UD PRN Nasal Congestion ASK your prescriber and surgeon aspirin 81 mg chewable tablet 81 mg PO QAM DO NOT take the morning of surgery cyanocobalamin (vitamin B-12) 1,000 mcg tablet (Vitamin B-12) 1,000 mcg PO DAILY magnesium hydroxide 400 mg/5 mL oral suspension (Milk of Magnesia) 30 ml PO DAILY PRN Constipation psyllium husk 3.4 gram/5.4 gram oral powder (Metamucil) 1 tbsp PO DAILY PRN Constipation pseudoephedrine 30 mg-acetaminophen 500 mg tablet 1 tab PO UD PRN mucous furosemide 20 mg tablet 20 mg PO QAM phenol-phenolate sodium mucosal aerosol spray 1 spray PO UD PRN itchy throat sucralfate 1 gram tablet 1 g PO QID Take morning of surgery With a small sip of water, OTHERWISE NOTHING TO EAT OR DRINK AFTER MIDNIGHT: carvedilol 12.5 mg tablet 12.5 mg PO BID carvedilol 25 mg tablet 25 mg PO BID gabapentin 100 mg capsule 100 mg PO DAILY PRN pain Take evening before surgery carvedilol 12.5 mg tablet 12.5 mg PO BID carvedilol 25 mg tablet 25 mg PO BID atorvastatin 80 mg tablet (Lipitor) 80 mg PO HS tamsulosin 0.4 mg capsule (Flomax) 0.4 mg PO HS sucralfate 1 gram tablet 1 g PO QID Other Notes If you have any questions please call us at [phone] or [phone] or [phone] or [phone]
--- NOTE | 2023-06-29 09:41 | Anesthesiology Consultation ---
Date of Service June 29, 2023 Assessment & Plan (1) Encounter for pre-operative examination: - Infectious disease screening: Per assessment on 06/29/23: No known infectious disease contacts or current infectious disease symptoms. No noted recent Covid positive test result. - Outpatient joint assessment: Pt currently scheduled for inpatient pathway. If surgeon requests review for outpatient joint pathway, patient is not recommended candidate for outpatient joint program from anesthesia standpoint based on available information. - EP visit (06/02/23): "Dual-chamber pacemaker: Interrogation of the pacemaker was performed, with evaluation of battery longevity, pacing and sensing characteristics and stored data. Battery and lead characteristics are stable. He has had brief nonsustained ventricular tachycardia and no atrial fibrillation since last visit.. Complete heart block: He remains in complete heart block and is pacemaker dependent. He is also pacing frequently in the atrium so his rate is controlled predominantly by the pacemaker and his heart rate profile looks appropriate for his level of activity.. Nonischemic cardiomyopathy: His left ventricular function normalized some time ago, but he still needs to watch his fluid intake and should remain on his medications. With no heart failure symptoms I have not ordered an echo this year.. Although he has nonobstructive coronary disease he does not have exertional symptoms to suggest angina. He should continue aspirin, atorvastatin and beta-blockade.. He has had no significant atrial fibrillation since last visit.. He did have several episodes of nonsustained ventricular tachycardia since his last visit however these were asymptomatic. I think we should continue to monitor, without left ventricular dysfunction and on high-dose beta-blockade I do not think further treatment or evaluation is indicated.. Due to his experience with Eliquis (although I think his side effects probably were not Eliquis related) he declines anticoagulation. With minimal atrial fibrillation perhaps this is relatively safe although not ideal. We do follow his device remotely so I will have him come back into the office in 1 year. He is doing relatively well although his activities are limited due to left hip pain, he is going to have that evaluated and is anticipating a need for surgery." - Possible difficult intubation: Due to hx throat cancer radiation treatments + decreased cervical extension Chart Review Chart Review: Acceptable Risk for Surgery and Patient seen in Pre Admission Testing Teaching & Discussion Pre-Anesthesia Teaching/Discussion Notes: Instructed NPO after midnight before surgery,except medications with 15 cc of water. Medication instructions provided according to the PAT guidelines. History Surgery Operation Date: 07/31/23 08:15 Proposed Procedures p Left Total Hip Arthroplasty Zari - Gonzalez Hoover, Height/Weight Height: 6 ft 4 in Weight: 127.5 kg Allergies Allergy/AdvReac Type Severity Reaction Status Date / Time isosorbide AdvReac Intermediate Headache, Verified 06/14/23 12:57 vision loss losartan AdvReac Intermediate Headache, Verified 06/14/23 12:57 vision loss apixaban [From Eliquis] AdvReac Elevated Verified 06/29/23 10:21 BP, urinary frequency Medications Home Medications Medication Instructions Recorded Confirmed Last Taken aspirin 81 mg chewable tablet 81 mg PO QAM 12/15/20 06/14/23 10/12/22 fluticasone propionate 50 1 spray intranasal UD PRN Nasal 02/01/21 06/14/23 02/10/21 18:00 mcg/actuation nasal Congestion spray,suspension (Flonase Allergy Relief) magnesium hydroxide 400 mg/5 mL 30 ml PO DAILY PRN Constipation 07/14/21 06/14/23 10/12/22 08:00 oral suspension (Milk of Magnesia) psyllium husk 3.4 gram/5.4 gram 1 tbsp PO DAILY PRN Constipation 01/16/22 06/14/23 10/12/22 oral powder (Metamucil) atorvastatin 80 mg tablet (Lipitor) 80 mg PO HS #90 tabs 09/26/22 06/14/23 10/12/22 carvedilol 25 mg tablet 25 mg PO BID #180 tabs 09/26/22 06/14/23 Unknown furosemide 20 mg tablet 20 mg PO QAM #90 tabs 09/26/22 06/14/23 10/11/22 gabapentin 100 mg capsule 100 mg PO DAILY PRN pain 10/12/22 06/14/23 Unknown carvedilol 12.5 mg tablet 12.5 mg PO BID 06/14/23 06/14/23 Unknown cyanocobalamin (vitamin B-12) 1,000 mcg PO DAILY 06/14/23 06/14/23 Unknown 1,000 mcg tablet (Vitamin B-12) phenol-phenolate sodium mucosal 1 spray PO UD PRN itchy throat 06/14/23 06/14/23 Unknown aerosol spray pseudoephedrine 30 1 tab PO UD PRN mucous 06/14/23 06/14/23 Unknown mg-acetaminophen 500 mg tablet sucralfate 1 gram tablet 1 g PO QID 06/14/23 06/14/23 Unknown tamsulosin 0.4 mg capsule (Flomax) 0.4 mg PO HS 06/14/23 06/14/23 Unknown omeprazole 40 mg capsule,delayed 40 mg PO DAILY Acid Reflux #90 caps 06/19/23 Unknown release Past Medical History Medical History AAA (abdominal aortic aneurysm) CT Abd/Pelvis (10/2022): Mildly calcified abdominal aorta and dilated measuring up to 4 cm. Cardiology monitoring. 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 COPD (chronic obstructive pulmonary disease) Per records Coronary artery disease non-obstructive Depression History of BPH History of dysphagia Needs to have a lot of fluid to get food down since having his tx for throat cancer History of gout Hyperlipidemia Hypertension Left bundle branch block Multiple pulmonary nodules Nonischemic cardiomyopathy Per records NSVT (nonsustained ventricular tachycardia) Numbness and tingling of both feet Chronic since cancer treatment Osteoarthritis Pacemaker [employer], implanted 2018 (3rd degree AVB) Follows with [facility] cardio Paroxysmal atrial fibrillation Per records Poor historian PVD (peripheral vascular disease) Tremor of both hands Per records Tubular adenoma of colon Exercise / Class Metabolic Activity III < 4 Walking/Shop/Light housework (uses cane PRN) Past Family History Family History Brother No problems noted. Sister No problems noted. Grandmother Cancer Other Heart disease Hypertension No family history of adverse response to anesthesia No family history of bleeding disorder Denies family history of Ovarian cancer Prostate cancer Diabetes Myocardial infarction Breast cancer Colorectal cancer Past Surgical History Surgical History History of appendectomy History of biopsy of bladder History of colonoscopy History of cystoscopy History of esophagogastroduodenoscopy (EGD) History of pacemaker History of tooth extraction History of umbilical hernia repair Per remote records, patient denies Hx of nasal septoplasty Past Anesthesia History No Hx of Anesthesia Complications and No Family Hx of Anesthesia Complications History of PONV No Hx of PONV and No Hx of Motion Sickness Social History Smoking Status: Former smoker tobacco type: cigarettes Do You Dip or Chew Tobacco: No (Quit 15 years ago) Smoking End Date: Quit 21 years ago Hx Alcohol Use: Yes Alcohol type: beer alcohol intake frequency: holidays/special occasions only (Rare) Hx Substance Use: No substance use type: does not use Review of Systems Occasional reflux resolved with OTC management. Patient denies chest pain, shortness of breath, fever, chills, cough, wheezing, palpitations. Physical Exam Vital Signs BP 108/72 P 69 TEMP 97.6 SP02 96%RA RESP 20 Physical Decreased cervical extension range of motion. Full TMJ range of motion. TMD 3 finger breaths Mallampati Score 2 Dentition: edentulous Lungs: clear throughout to auscultation Cardiac: regular rate and rhythm, no murmurs noted Spine: normal Carotid arteries: negative bruit Extremities: no LE edema Lab Results Anesthesia Preop Results Results Anesthesia Widget: WBC 4.90 K/ul (4.8-10.8) 06/29/23 Hgb 13.4 g/dl (14.0-18.0) L 06/29/23 Hct 39.6 % (42.0-52.0) L 06/29/23 Plt 152 K/uL (130-400) 06/29/23 Na 142 mmol/L (136-145) 06/29/23 K 3.7 mmol/L (3.5-5.1) 06/29/23 Cl 110 mmol/L (98-107) H 06/29/23 CO2 28 mmol/L (21-32) 06/29/23 BUN 22 mg/dl (6-23) 06/29/23 Creat 1.13 mg/dl (0.6-1.4) 06/29/23 Glucose Level 99 mg/dl (70-99(Fasting)) 06/29/23 PT 10.8 Seconds (9.0-12.0) 06/29/23 PTT 26 Seconds (21-31) 06/29/23 INR 1.0 (0.9-1.1) 06/29/23 Blood Type A Positive 06/29/23 Antibody Screen NEGATIVE 06/29/23 Testing Electrocardiogram Date: 06/29/23 AV dual-paced rhythm at 67bpm. Chest X-Ray Date: 10/12/22 FINDINGS: An implanted pacemaker is seen. Calcified aortic knob is seen. The lungs are clear. No evidence of pleural effusion or pneumothorax. IMPRESSION: No acute abnormalities and in particular no radiographic evidence of pneumonia. Echocardiogram Date: 09/12/22 EF 55-60%. No RWMA. Moderate cLVH. No RWMA. Other Testing Pacer check Date: 06/02/23 Mode DDDR. 8.0 years battery longevity. VT (>4 beats): 2. AT/AF zero. PATIENT PLACEMENT COORDINATOR 99.9%. AP 56.9%.
--- NOTE | 2023-08-30 17:08 | History & Physical Report ---
Date of Service August 30, 2023 Assessment & Plan (1) Osteoarthritis of left hip: We will proceed with a left anterior total of arthroplasty. Postoperatively he will be started on aspirin for DVT prophylaxis and kept overnight in the hospital for postop medical management. He plans to have the hospital set up home health for discharge. History of Present Illness Chief Complaint: Osteoarthritis of the left hip. Primary Care Provider: Felicity Warren MD Maria Alejandra is a pleasant 78-year-old male who has been dealing with chronic increasing left hip and groin pain. He lives in a trailer in [place]. His [id number] lives across the road from him. He is to the point where he can barely ambulate on some days with regard to the hip. He saw another provider who obtained x-rays of his left hip and diagnosed him with osteoarthritis. After failing extensive conservative treatment, he has elected proceed with a left anterior total of arthroplasty. Allergies Allergy/AdvReac Type Severity Reaction Status Date / Time isosorbide AdvReac Intermediate Headache, Verified 08/29/23 14:11 vision loss losartan AdvReac Intermediate Headache, Verified 08/29/23 14:11 vision loss apixaban [From Eliquis] AdvReac Elevated Verified 08/29/23 14:11 BP, urinary frequency Home Medications Medication Instructions Recorded Confirmed Type aspirin 81 mg chewable tablet 81 mg PO QAM 12/15/20 08/29/23 History atorvastatin 80 mg tablet (Lipitor) 80 mg PO HS #90 tabs 09/26/22 08/29/23 Rx carvedilol 25 mg tablet 25 mg PO BID #180 tabs 09/26/22 08/29/23 Rx furosemide 20 mg tablet 20 mg PO QAM #90 tabs 09/26/22 08/29/23 Rx gabapentin 100 mg capsule 300 mg PO DAILY PRN pain 10/12/22 08/29/23 History cyanocobalamin (vitamin B-12) 1,000 mcg PO DAILY 06/14/23 08/29/23 History 1,000 mcg tablet (Vitamin B-12) phenol-phenolate sodium mucosal 1 spray PO UD PRN itchy throat 06/14/23 08/29/23 History aerosol spray omeprazole 40 mg capsule,delayed 40 mg PO DAILY Acid Reflux #90 caps 06/19/23 08/29/23 Rx release tamsulosin 0.4 mg capsule (Flomax) 0.4 mg PO HS #90 caps 07/07/23 08/29/23 Rx Past Med/Surg History Problem List (Updated 08/30/23 @ 17:07 by Gonzalez Hoover DO) Osteoarthritis of left hip Right shoulder pain COVID-19 (Acute) Medical History Phlegm in throat "has all the time, since he had his throat cancer; has to clear his throat all the time, constantly spitting up the mucus" History of COVID-19 07/2023, not hosp, tx and tested at [place] [facility]; given inhaler and sent home>no residual symptoms History of BPH History of gout NSVT (nonsustained ventricular tachycardia) Paroxysmal atrial fibrillation Per records PVD (peripheral vascular disease) Depression Carcinoma of supraglottis ~2009, 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 Cardiology monitoring. 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 Sister No problems noted. Grandmother Cancer Other Heart disease Hypertension No family history of adverse response to anesthesia No family history of bleeding disorder Denies family history of Ovarian cancer Prostate cancer Diabetes Myocardial infarction Breast cancer Colorectal cancer Social History Smoking Status: Former smoker Tobacco Type: Cigarettes Age Started Using Tobacco: 15; Age Quit Using Tobacco: 52; packs per day: 2; Smoking End Date: 2 PPD, quit 20 years ago; Second Hand Exposure: No; Do You Dip or Chew Tobacco: Yes (hx-quit years ago; advised); Tobacco Cessation Education Requested by Patient: No Hx Alcohol Use: Yes (only once in awhile) Alcohol type: beer Hx Substance Use: No Preferred Language: Nepali Communication Ability: Effective Visual Impairment: No Limitations Hearing Ability: Normal Sanitation Tank Washer Required: No Beliefs That Will Affect Care: None marital status: / Current Living Situation: Alone Current Living Situation Comment: grandson will stay w/pt after surgery current occupational status: retired How many Children do You have: 2 Other Information That Helps Us Care for You: No Feels Safe at Home: Yes Safety Concerns: Feels Safe At This Time Childhood Exposure to Second-Hand Smoke: No Diet: regular caffeine: Yes during the past year weight has: remained stable Dental Care, Regularly: No Physical Activity Frequency: Daily Seatbelt Use: always Sunscreen Use: No Do you think of yourself as: straight/heterosexual Gender Identity: Male Assistive Devices: Cane and Glasses Assistive Devices Comment: reading glasses prn Review of Systems All systems reviewed & are unremarkable except as noted in HPI & below. Physical Exam On physical examination left hip, he has decreased range of motion. He has pain with internal/external rotation. Most of his pain is located in the groin.. Constitutional WD/WN, vitals as above Eyes PERRL, conjunctivae normal, anicteric sclerae ENMT external ear and nose normal, oropharynx normal Neck trachea midline, no thyromegaly Respiratory normal respiratory effort Cardiovascular RRR, no murmur, no edema Gastrointestinal (Abdomen) normal bowel sounds, soft, nontender, no hepatosplenomegaly Psychiatric A+Ox3, euthymic affect Results & Data Results & Data Laboratory Results . Diagnostic Findings X-rays of the left hip show advanced osteoarthritis with joint space narrowing, osteophyte formation, and [id number] articulation. PG Care Time/CCT Total # of Minutes Spent Total Time Spent with Patient: Total time spent is greater than 50% in coordination of care (as documented) at patient's floor/unit and/or counseling patient: Coding Level of Care Code None Diagnoses Osteoarthritis of left hip M16.12
[~2023-09-04 06:55] MED LIST changes: +ACETAMINOPHEN 500 MG TAB PO SCH; -ASPI81TA28 PO; -ATOR-24 PO; -CARV6.252 PO; -CRANBERRY FRUIT PO; +FAMOTIDINE 20 MG TAB PO SCH; +GABAPENTIN 300 MG CAP PO SCH; +LR 500ML BOLUS, THEN 15ML/HR IV SCH; +LR 60ML/HR IV SCH; -OMEP40CA PO; +ROPIV 0.5% 246mg, Ketorolac 30mg, EPINEPHrine 0.5mg in NSS INFIL SCH; +TRANEXAMIC ACID 1,000 MG **IV Intra-op IV SCH; +TRANEXAMIC ACID 1,000 MG **IV Pre-op IV SCH; -[UNRECOGNIZED DRUG - OTHER] PO; +ceFAZolin 3000MG 3,000 MG/72.5 ML BAG IV SCH; +dexAMETHasone**PF** 10 MG/ML VIAL IV SCH
[2023-09-04] MEDS ORDERED: ROPIVACAINE 0.5% 5 MG/ML 30 ML VIAL ONE (06:59)
[2023-09-04] MEDS ORDERED: fentaNYL citrate PF 100 MCG/2 ML VIAL ONE (07:53)
[2023-09-04] MEDS ORDERED: MIDAZOLAM HCL 1 MG/ML 2ML VIAL ONE (07:53)
[2023-09-04] MEDS ORDERED: LIDOCAINE 2% 2 ML VIAL/AMP(20MG/ML) INFIL ONE (07:54)
[2023-09-04] MEDS ORDERED: PROPOFOL IV EMULSION 10 MG/ML 20 ML VIAL IV ONE ×3 (07:54→13:40)
[2023-09-04] MEDS ORDERED: ONDANSETRON INJ 2 MG/ML 2 ML VIAL ONE (07:55)
[2023-09-04] MEDS: LR 60ML/HR IV SCH (07:57)
[2023-09-04] MEDS: ACETAMINOPHEN 500 MG TAB PO SCH ×2 (07:57→15:00)
[2023-09-04] MEDS: LR 500ML BOLUS, THEN 15ML/HR IV SCH (07:57)
[2023-09-04] MEDS: GABAPENTIN 300 MG CAP PO SCH (07:58)
[2023-09-04] MEDS: FAMOTIDINE 20 MG TAB PO SCH (07:58)
[2023-09-04] MEDS: dexAMETHasone**PF** 10 MG/ML VIAL IV SCH (07:58)
--- NOTE | 2023-09-04 07:59 | History & Physical Bridge Note ---
Date of Service September 04, 2023 History & Physical Bridge Note I have examined the patient, reviewed the History & Physical and in the interval since the performance of the History & Physical I have noted the following changes of clinical significance: no changes noted
[2023-09-04] MEDS ORDERED: ePHEDrine sulfate 50 MG/ML AMP IV PRN (08:45)
[2023-09-04] MEDS ORDERED: HYDROmorphone INJ 1 MG/ML SYRINGE IV PRN (08:45)
[2023-09-04] MEDS ORDERED: ATROPINE SULFATE 0.1 MG/ML 10ML SYR IV PRN (08:45)
[2023-09-04] MEDS ORDERED: ONDANSETRON INJ 2 MG/ML 2 ML VIAL IV PRN ×2 (08:45→13:02)
[2023-09-04] MEDS: TRANEXAMIC ACID 1,000 MG **IV Pre-op IV SCH (09:06)
[2023-09-04] MEDS: ceFAZolin 3000MG 3,000 MG/72.5 ML BAG IV SCH (09:17)
[2023-09-04] MEDS: ROPIV 0.5% 246mg, Ketorolac 30mg, EPINEPHrine 0.5mg in NSS INFIL SCH (09:54)
[2023-09-04] MEDS: ORTHO JOINT ANESTHETIC ONE (09:54)
[2023-09-04] MEDS ORDERED: PHENYLEPHRINE 100MCG/ML 10ML SYR IV ONE ×2 (09:57→11:15)
[2023-09-04] MEDS ORDERED: ePHEDrine sulfate 50 MG/5 ML SYR ONE ×2 (09:57→13:23)
[2023-09-04] MEDS: TRANEXAMIC ACID 1,000 MG **IV Intra-op IV SCH (10:50)
[2023-09-04] MEDS: KETOROLAC 30 MG/ML VIAL IV PRN (12:04)
--- NOTE | 2023-09-04 12:25 | Anesthesiology Progress Note ---
Date of Service September 04, 2023 Anesthesia Post Procedure Vital Signs Vital Signs: Temp Pulse Resp BP Pulse Ox O2 Del Method O2 Flow Rate 09/04/23 12:15 72 18 164/84 H 94 Room Air 09/04/23 12:05 73 20 180/91 H 99 Oxymask 4 09/04/23 11:55 74 17 166/84 H 99 Oxymask 14 09/04/23 11:45 36.4 C L 76 18 164/90 H 98 Oxymask 14 09/04/23 07:37 Room Air 09/04/23 07:37 36.4 C L 74 22 177/96 H 97 Room Air Pain Intensity Left Hip: Pain Intensity: 2 Transfer of Care Handoff Completed per policy Notes Mental Status: alert / awake / arousable Patient Amnestic to Procedure: Yes Nausea / Vomiting: adequately controlled Pain: adequately controlled Airway Patency, RR, SpO2: stable & adequate BP & HR: stable & adequate Hydration State: stable & adequate Neuraxial Anesthesia: was administered and sensory block is resolving Anesthetic Complications: no major complications apparent
--- NOTE | 2023-09-04 12:57 | Fluoroscopy Report ---
FL hip LT 1V CLINICAL HISTORY: LT ANTERIOR VILLA TECHNIQUE: 1 views were obtained with the C-arm in the OR with the above procedure. Total fluoroscopy time was 25.1 seconds. Radiation dose was 2.34 mGy. Comparison: Comparison is made to left hip radiograph 12/23/2022 FINDINGS/IMPRESSION: Intraoperative images were obtained of left anterior hip arthroplasty. Please correlate with intraoperative fluoroscopy and operative report. ACT 112: Negative or not required by law. Electronically signed by: Souleymane Snowden M.D. 09/04/2023 12:56 PM
--- NOTE | 2023-09-04 12:58 | XRay Report ---
XR hip 1V LT w pelvis CLINICAL HISTORY: IN PACU - Post Surgical TECHNIQUE: 1 view of the left hip and single frontal view of the pelvis were obtained. Comparison: Comparison is made to hip radiographs 12/23/2022 FINDINGS: Patient is status post total hip arthroplasty with expected postsurgical changes including soft tissu e swelling and subcutaneous emphysema. IMPRESSION: Expected postoperative appearance status post placement of total hip arthroplasty. ACT 112: Negative or not required by law. Electronically signed by: Souleymane nSowden M.D. 09/04/2023 12:56 PM
[2023-09-04] MEDS ORDERED: bisacodyL 10 MG SUPP PR PRN (13:02)
[2023-09-04] MEDS ORDERED: METOCLOPRAMIDE HCL INJ 5 MG/ML 2 ML VIAL IV PRN (13:02)
[2023-09-04] MEDS ORDERED: oxyCODONE HCL IR 5 MG TAB (IMMEDIATE RELEASE) PO PRN (13:02)
[2023-09-04] MEDS ORDERED: NALOXONE HCL 0.4 MG/1 ML VIAL/CARP IV PRN (13:02)
[2023-09-04] MEDS ORDERED: HYDROmorphone INJ 0.5 MG/0.5 ML SYR IV PRN (13:02)
[2023-09-04] MEDS ORDERED: GABAPENTIN 300 MG CAP PO PRN (13:02)
[2023-09-04] MEDS ORDERED: MAGNESIUM HYDROXIDE SUSP 30 ML UDC PO PRN (13:02)
--- NOTE | 2023-09-04 14:30 | Operative Report ---
PG Post Operative Report Pre & Post Diagnosis Operation Date: 09/04/23 09:00 Pre-Op Diagnosis: Left Hip Degenerative Joint Disease Post-Op Diagnosis: Left Hip Degenerative Joint Disease I identified the patient and participated in the time-out.: Yes Procedure Operation Date: 09/04/23 09:00 Actual Procedures p Left Anterior Total Hip Arthroplasty, Cemented.(Left) - Gonzalez Hoover DO Surgeon Gonzalez Hoover DO Terrazzo Mechanic Gonzalez Stafford PA-C Estimated Blood Loss 300 Findings Consistent with Post-Op Diagnosis Specimens Left femoral head Description of Procedure Implants used I used a ZimmerBiomet total hip arthroplasty system with a size 9 cemented echo stem, a 58 mm G7 cup with a 25mm screw, an E1 polyethylene liner, a 40 mm ceramic head with a +6 neck. Kevin arrived at the hospital for the above procedure. He was seen in the preoperative holding area and the operative extremity was identified and signed. He was given a spinal anesthetic, a preoperative antibiotic, and TXA. He was then taken back to the operating room and laid on the table in the supine position. He was given basic sedation which was then converted to a general anesthetic. The operative leg was secured to a Puristst leg positioner. The hip was then prepped and draped in sterile fashion. A timeout was done and the patient and the operative extremity was properly identified. An anterior approach was used. Dissection was taken down through the fascia and the tensor muscle belly was retracted laterally and the rectus was retracted medially. The circumflex vessels were identified and ligated. The capsule was then incised and tagged for later repair. The femoral neck was then cut and the femoral head was removed. The acetabulum was exposed. Time was spent doing a complete circumferential labral release. Sequential reaming of the acetabulum up to a size 57 reamer was done. Final reamings were done under fluoroscopy to ensure appropriate version. A Biomet 58 mm G7 cup was then impacted into place. A single 25 mm screw was placed. The E1 polyethylene liner was then snapped into place. Surrounding soft tissues were then injected with 100 cc of an orthopedic pain control cocktail. The proximal femur was then exposed. He had a very wide metaphysis and a more narrow diaphysis. Initial broaching of an Avenir system did not give adequate fit. I decided to do a cemented echo stem to give better fixation. Sequential broaching up to a size 9 broach was done. Off that broach a size 40 head with a +6 neck was trialed. The hip was reduced and fluoroscopic images showed anatomic alignment of the implants in acceptable length. The broach was removed. The final size 9 echo stem was then cemented into place. Once cement had dried, a ceramic 40 mm head with a +6 neck was then impacted onto the stem and the hip was reduced. Final fluoroscopic images showed anatomic alignment of the hip. The capsule was then closed with #1 Vicryl suture. A dilute betadyne lavage was then done for 3 minutes. The joint was then irrigated with normal saline solution. The fascia was closed with #1 PDS suture. Skin was closed with 2-0 Vicryl, adan, and a Silverlon dressing. He was then transferred to a hospital bed and taken to the post anesthesia care unit in stable condition. He tolerated the procedure well. Gonzalez Stafford PA-C, was present for the entire procedure. He was critical for patient positioning, prepping, draping, retraction exposure, wound closure and application of sterile dressing. I attest to the content of the Intraoperative Record and any orders documented therein. Any exceptions are noted below.
[2023-09-04] MEDS: SODIUM CHLORIDE 0.9% 1,000 ML IV SCH (14:34)
[2023-09-04] MEDS: carvediloL 25 MG TAB PO SCH (16:35)
[2023-09-04] MEDS: ceFAZolin 2000MG 2,000 MG/15 ML SYR IV SCH (16:35)
[2023-09-04] MEDS: KETOROLAC TROMETHAMINE 15 MG/ML VIAL IV SCH (17:27)
[2023-09-04] MEDS: SENNA 8.6 MG TAB PO SCH (20:45)
[2023-09-04] MEDS: DOCUSATE SODIUM 100 MG CAP PO SCH (20:45)
[2023-09-04] MEDS: TAMSULOSIN HCL 0.4 MG CAP PO SCH (20:45)
[2023-09-04] MEDS: ATORVASTATIN 40 MG TAB PO SCH (20:45)
[2023-09-04] MEDS: ASPIRIN 81 MG ECTAB PO SCH (20:45)
--- NOTE | 2023-09-05 06:57 | Orthopedic Progress Note ---
Date of Service September 05, 2023 Assessment & Plan (1) Status post left hip replacement: Overall he is doing very well. Is not having much pain in the left hip. He will be seen by physical therapy today for ambulation and range of motion exercises. He is on aspirin for DVT prophylaxis. He can be discharged home later today. He will follow-up with orthopedics in 2 weeks. Susu Brown was seen and examined at bedside this morning. Overall he is doing very well. He is not having much pain in the left hip. He has been up and ambulating. Has no complaints.. Review of Systems All systems reviewed & are unremarkable except as noted in HPI & below. Physical Exam On physical examination left hip, the dressing is clean and dry. His leg is out full extension. He has active dorsiflexion plantarflexion of his left ankle.. Results & Data Results & Data Laboratory Results . Diagnostic Findings Postoperative x-rays of the left hip show the prosthesis to be in anatomic alignment without any evidence of fracture complication, or loosening.. PG Care Time/CCT Total # of Minutes Spent Total Time Spent with Patient: Total time spent is greater than 50% in coordination of care (as documented) at patient's floor/unit and/or counseling patient: Coding Level of Care Code 84406 Post Operative Follow-Up Diagnoses Status post left hip replacement Z96.642
--- NOTE | 2023-09-05 06:58 | Discharge Summary ---
Date of Service September 05, 2023 Admission HPI (Per Admitting) Maria Alejandra is a pleasant 78-year-old male who has been dealing with chronic increasing left hip and groin pain. He lives in a trailer in [place]. His [id number] lives across the road from him. He is to the point where he can barely ambulate on some days with regard to the hip. He saw another provider who obtained x-rays of his left hip and diagnosed him with osteoarthritis. After failing extensive conservative treatment, he has elected proceed with a left anterior total of arthroplasty. Admission Exam (Per Admitting) On physical examination left hip, he has decreased range of motion. He has pain with internal/external rotation. Most of his pain is located in the groin.. Principal Diagnosis Same as "Discharge Diagnosis" noted below under Discharge Instructions. Discharge Exam On physical examination left hip, the dressing is clean and dry. His leg is out full extension. He has active dorsiflexion plantarflexion of his left ankle.. Discharge Data Procedures Performed Operation Date: 09/04/23 09:00 Actual Procedures p Left Anterior Total Hip Arthroplasty, Cemented.(Left) - Gonzalez Hoover DO Ordered Studies 09/04/23 09:00 FL hip LT 1V Routine Hospital Course (1) Status post left hip replacement: On September 04, 2023 Kevin arrived at [facility] and underwent a left hip replacement without complication. He had a general anesthetic. Postoperatively he was started on aspirin for DVT prophylaxis and transferred to the general orthopedic floors. His hospital course was uneventful. On postop day #1, his vital signs were stable and his pain was well-controlled. He was able to participate well with physical therapy doing ambulation and range of motion exercises. He was then discharged home. He will follow-up with orthopedics in 2 weeks. PG Care Time/CCT Total # of Minutes Spent Total Time Spent with Patient: Total time spent is greater than 50% in coordination of care (as documented) at patient's floor/unit and/or counseling patient: Discharge Plan Discharge Items Patient Disposition: Home - Self-Care Reason For Visit: Left Hip Degenerative Joint Disease Discharge Diagnosis: Left hip replacement Activity: Per Instructions section Non-emergency contact: Surgeon Call non-emergency contact if: your wound has increased redness and your wound has increased drainage Follow-up/Referrals: Felicity Warren MD [Primary Care Provider] - Diet: Regular Addtl Attending Provider Instructions: Activity and Therapy Recommendations: * If you are using [facility] then therapy will be provided at your home until they feel you have accomplished all of your goals. * If you are using [facility] then Physical Therapy will be provided until they feel you are ready to start Outpatient Physical Therapy. * If you are not using home therapy then Outpatient Physical Therapy should start about 3-5 days from your day of surgery. Therapy will last about 6-10 weeks * You were shown a series of exercises in the hospital. Do these exercises three times each day including the exercises you were shown in physical therapy. * Get up and walk several times each day.~ For the first four weeks, try not to stand or walk for more than one hour at a time. If you do stand or walk for more than one hour, you will not hurt anything, but your leg will likely swell.~~ * As you feel comfortable, you may change from the walker or crutches to a cane and~then to independent walking. Medications: * Narcotic You will likely be sent home from the hospital with a prescription for the narcotic pain medication that worked best throughout your stay. * Cefadroxil -take the antibiotic twice a day for 10 days to help prevent infection. * Aspirin Most patients will be required to take Aspirin 81mg twice a day for 6 weeks after surgery. This is obtained [id number]-pywtsrh and a prescription is not necessary. * Other medications may be prescribed for specific circumstances. If you have any questions, please call the office at . * Resume previous home medications unless otherwise instructed TEDs/Elastic Stockings: The white elastic stockings help limit swelling and prevent blood clots from forming in your legs. The more you wear them, the more they work. Wear them for six weeks. Dressing Care: Leave the Silverlon dressing in place for 7 days. After 7 days you may remove the dressing. If the incision is not draining then you may leave the adan open to air. If there is a little bit of drainage or if the adan are getting stuck on your clothing then cover the incision with a dry dressing. The adan will be removed at your 2 week follow-up appointment. Showering: You may shower with the Silverlon dressing in place. Do not let the shower spray hit the dressing directly. Pat the Silverlon dressing dry. If the dressing becomes wet underneath, then simply remove the dressing. Keep the incision dry until you are 7 days out from the day of surgery. After 7 days you may remove the Silverlon dressing and shower with the adan exposed. Let soapy water run over the adan and pat them dry. Do not scrub or soak the incision. Things To Watch For: * Drainage from the incision site that occurs more than one week after your surgery. * Increased redness at the incision site. * Fever above 102 degrees Fahrenheit. * Unusual chest pain or shortness of breath. * Call [facility] at with any of the above problems Follow-Up Visit: Follow-up with Dr. Hoover's PA (Gonzalez Stafford) 2-3 weeks after your day of rojas rgery. He will remove your adan and answer any questions. If you have any additional questions or concerns, Dr Hoover is usually in the office at the same time and will be available An appointment was probably scheduled when you signed-up for surgery in the office. If you have any questions call Office Instructions: More detailed instructions as well as Frequently Asked Questions were provided in a folder by our office when you signed-up for surgery. Please review these instructions when you get home. If you have any further questions or concerns, please feel free to call the office at [phone] Pending Studies at Discharge: No Stand-Alone Forms: My [facility], Smoking Cessation Medications and DC Order Prescriptions: New oxycodone 5 mg Tablet 5 mg PO Q4H PRN (Reason: pain) Qty: 30 0RF cefadroxil 500 mg capsule 500 mg PO BID 10 Days Qty: 20 0RF Continued omeprazole 40 mg capsule,delayed release(DR/EC) 40 mg PO DAILY Qty: 90 3RF Patient Comments: doesn't take all the time tamsulosin [Flomax] 0.4 mg capsule 0.4 mg PO HS Qty: 90 3RF carvedilol 25 mg tablet 25 mg PO BID Qty: 180 3RF Patient Comments: dosage changed per pt. atorvastatin [Lipitor] 80 mg tablet 80 mg PO HS Qty: 90 3RF Rx Instructions: for cholesterol furosemide 20 mg tablet 20 mg PO QAM Qty: 90 3RF gabapentin 100 mg capsule 300 mg PO DAILY PRN (Reason: pain) cyanocobalamin (vitamin B-12) [Vitamin B-12] 1,000 mcg Tablet 1,000 mcg PO DAILY Throat Gazelle Aerosol,Gazelle 1 spray PO UD PRN (Reason: itchy throat) Changed aspirin 81 mg Tablet,Chewable 81 mg PO BID 42 Days Qty: 0 0RF Discharge Orders: Discharge Order (Routine); Ordered 09/05/23 Ordered By: Gonzalez Hoover Admission Data Admit Date/Time: 09/04/23 11:46 Attending Provider: Gonzalez Hoover Admit Provider: Gonzalez Hoover Primary Care Provider: Felicity Warren
[2023-09-05] MEDS: dexAMETHasone 4 MG TAB PO SCH (08:42)
[2023-09-05] MEDS: FUROSEMIDE 20 MG TAB PO SCH (08:42)
[2023-09-05] MEDS: MULTIVITAMIN TAB PO SCH (08:43)
== END 2023-09-05 11:04 | disposition home health service (06) ==
LOC: ASU 06:55 → 3E 06:55 → PACUINP 06:55 → 3E 14:10